=== PATIENT | female | born 1945 | race Two or more races ===

== ENCOUNTER → 2016-05-10 | Outpatient (CLI) | payer MEDICARE, MEDICAID ==
[~2016-05-10] MED LIST: AMLO5TAB2 PO; ASPI-231 PO; ESOM40CA39 PO; METO25TA5 PO; ROSU20TA14 PO
[2016-05-10 12:07] LABS: Urine Bilirubin Negative (Negative); Urine Blood Negative /uL (Negative); Urine Color Yellow (Yellow); Urine Glucose Normal (Normal); Urine Ketone Negative (Negative); Urine Nitrite Negative (Negative); Urine Urobilinogen Normal (Negative); Urine pH 5.5 (5.0-8.0)
[2016-05-10 12:11] LABS: Basophils # (auto) 0 uL; Basophils % (auto) 0.2 % (0.0-2.0); Eosinophils # (auto) 0.2 uL; Eosinophils % (auto) 3.2 % (0.0-7.0); Hematocrit 39.5 % (36.0-46.0); Hemoglobin 13.4 g/dL (12.2-16.2); Lymphocytes # (auto) 1.7 uL; Lymphocytes % (auto) 30.7 % (10.0-50.0); Mean Corpuscular Hemoglobin 31.9 pg (28.0-32.0); Mean Corpuscular Volume 93.8 fL (80.0-100.0); Mean Platelet Volume 8.4 fL (7.4-10.4); Monocytes # (auto) 0.4 uL; Monocytes % (auto) 6.6 % (0.0-12.0); Neutrophils # (auto) 3.2 uL; Neutrophils % (auto) 59.3 % (37.0-80.0); Platelet Count (auto) 229 10^3/uL (140-450); Red Cell Distribution Width 13.3 % (11.6-16.0); White Blood Cell 5.5 10^3/uL (4.4-10.8)
[2016-05-10 12:34] LABS: Alkaline Phosphatase 89 U/L (45-117); Anion Gap 11 (5-15); Aspartate Aminotransferase 22 U/L (15-37); BUN/Creatinine Ratio 19.6; Bilirubin, Direct 0.2 mg/dL (0-0.2); Bilirubin, Total 0.5 mg/dL (0.2-1.0); Blood Urea Nitrogen 29 mg/dL (7-18); Calcium 9.1 mg/dL (8.5-10.1); Carbon Dioxide 26 mmol/L (21-32); Chloride 110 mmol/L (98-107); Cholesterol 265 mg/dL (0-200); GFR African American 44 mL/min; GFR Non-African American 37 mL/min; Glucose 90 mg/dL (74-106); HDL Cholesterol 42 mg/dL (40-59); Potassium 4.6 mmol/L (3.5-5.1); Sodium 147 mmol/L (136-145); Triglycerides 438 mg/dL (<150)
== END | disposition home or self-care (01) ==
LOC: LAB 09:00
PROVIDERS: ATTEND Internal Medicine Cardiovascular Disease
DX: I10 Essential (primary) hypertension (principal); E78.00 Pure hypercholesterolemia, unspecified; K74.1 Hepatic sclerosis; E11.9 Type 2 diabetes mellitus without complications; E03.9 Hypothyroidism, unspecified; D64.9 Anemia, unspecified; E55.9 Vitamin D deficiency, unspecified; N39.0 Urinary tract infection, site not specified
CPT/HCPCS: 36415; 80048; 80061; 80076; 81003; 82306; 83036; 84439; 84443; 85025

== ENCOUNTER → 2016-08-07 | Outpatient (CLI) | payer MEDICARE, MEDICAID ==
[2016-08-07 12:27] LABS: Basophils # (auto) 0 uL; Basophils % (auto) 0.4 % (0.0-2.0); CONDITION Y; Eosinophils # (auto) 0.1 uL; Hematocrit 37.9 % (36.0-46.0); Hemoglobin 13.3 g/dL (12.2-16.2); Lymphocytes # (auto) 1.6 uL; Lymphocytes % (auto) 32.2 % (10.0-50.0); Mean Corpuscular Hemoglobin 32.9 pg (28.0-32.0); Mean Corpuscular Hgb Conc. 35.1 g/dL (32.0-36.0); Mean Corpuscular Volume 93.8 fL (80.0-100.0); Mean Platelet Volume 8.7 fL (7.4-10.4); Monocytes # (auto) 0.3 uL; Neutrophils # (auto) 2.9 uL; Neutrophils % (auto) 58.4 % (37.0-80.0); Platelet Count (auto) 207 10^3/uL (140-450); Red Cell Distribution Width 12.9 % (11.6-16.0)
[2016-08-07 13:13] LABS: Albumin 3.8 g/dL (3.4-5.0); BUN/Creatinine Ratio 19.5; Bilirubin, Total 0.4 mg/dL (0.2-1.0); Calcium 8.7 mg/dL (8.5-10.1); Potassium 4.4 mmol/L (3.5-5.1); Total Protein 7.4 g/dL (6.4-8.2)
== END | disposition home or self-care (01) ==
LOC: LAB 09:19
PROVIDERS: ATTEND Internal Medicine Cardiovascular Disease
DX: I10 Essential (primary) hypertension (principal); E03.9 Hypothyroidism, unspecified; D64.9 Anemia, unspecified
CPT/HCPCS: 36415; 80053; 84443; 85025

== ENCOUNTER → 2017-03-19 | Outpatient (CLI) | payer MEDICARE, MEDICAID ==
[2017-03-19 12:09] LABS: Basophils # (auto) 0.1 uL; Basophils % (auto) 1.6 % (0.0-2.0); Eosinophils # (auto) 0.2 uL; Eosinophils % (auto) 3.3 % (0.0-7.0); Hemoglobin 12.9 g/dL (12.2-16.2); Lymphocytes # (auto) 1.8 uL; Lymphocytes % (auto) 31.9 % (10.0-50.0); Mean Corpuscular Hemoglobin 31.5 pg (28.0-32.0); Mean Corpuscular Volume 95.4 fL (80.0-100.0); Monocytes # (auto) 0.3 uL; Monocytes % (auto) 5.9 % (0.0-12.0); Neutrophils # (auto) 3.2 uL; Neutrophils % (auto) 57.3 % (37.0-80.0); Nucleated Red Blood Cells % 0.9 %; Platelet Count (auto) 218 10^3/uL (140-450); Red Blood Cells 4.09 10^6/uL (4.0-5.20); Red Cell Distribution Width 13.2 % (11.8-14.3); White Blood Cell 5.5 10^3/uL (4.4-10.8)
[2017-03-19 12:13] LABS: Urine Blood Negative /uL (Negative); Urine Specific Gravity 1.016 (1.001-1.035)
[2017-03-19 12:41] LABS: Alanine Aminotransferase 21 U/L (13-56); Albumin 3.7 g/dL (3.4-5.0); Alkaline Phosphatase 91 U/L (45-117); Anion Gap 9 (5-15); Aspartate Aminotransferase 17 U/L (15-37); BUN/Creatinine Ratio 17.1; Bilirubin, Direct 0.1 mg/dL (0-0.2); Bilirubin, Total 0.5 mg/dL (0.2-1.0); Blood Urea Nitrogen 26 mg/dL (7-18); Carbon Dioxide 24 mmol/L (21-32); Chloride 108 mmol/L (98-107); Cholesterol 247 mg/dL (< 200); GFR African American 43 mL/min; GFR Non-African American 36 mL/min; Glucose 85 mg/dL (74-106); HDL Cholesterol 44 mg/dL (40-59); Potassium 4.3 mmol/L (3.5-5.1); Sodium 141 mmol/L (136-145); Total Protein 7.8 g/dL (6.4-8.2); Triglycerides 408 mg/dL (< 150)
== END | disposition home or self-care (01) ==
LOC: LAB 08:09
PROVIDERS: ATTEND Internal Medicine
DX: E78.00 Pure hypercholesterolemia, unspecified (principal); D64.9 Anemia, unspecified; E11.9 Type 2 diabetes mellitus without complications; E55.9 Vitamin D deficiency, unspecified; K74.1 Hepatic sclerosis; I10 Essential (primary) hypertension; N39.0 Urinary tract infection, site not specified; E03.9 Hypothyroidism, unspecified
CPT/HCPCS: 36415; 80048; 80061; 80076; 81003; 82306; 83036; 84443; 85025

== ENCOUNTER → 2017-04-16 | Outpatient (CLI) | payer MEDICARE, MEDICAID | END | disposition home or self-care (01) | LOC: Rad HDHVI 08:36 | PROVIDERS: ATTEND Internal Medicine Cardiovascular Disease | DX: I70.0 Atherosclerosis of aorta (principal); I51.7 Cardiomegaly | CPT/HCPCS: 93306 ==

== ENCOUNTER → 2017-04-25 | Outpatient (CLI) | payer MEDICARE, MEDICAID ==
[~2017-04-25] VITALS: Ht 162.6 cm; Wt 75.3 kg
== END | disposition home or self-care (01) ==
LOC: Rad HDHVI 12:57
PROVIDERS: ATTEND Internal Medicine Cardiovascular Disease
DX: I12.9 Hypertensive chronic kidney disease with stage 1 through stage 4 chronic kidney disease, or unspecified chronic kidney disease (principal); N18.3 Chronic kidney disease, stage 3 (moderate); E78.2 Mixed hyperlipidemia; E78.1 Pure hyperglyceridemia; K21.9 Gastro-esophageal reflux disease without esophagitis; R07.89 Other chest pain
CPT/HCPCS: 78452; 93017; 96374; A9500

== ENCOUNTER 2017-11-28 13:57 | Emergency (ER) | payer MEDICARE, MEDICAID ==
[~2017-11-28] VITALS: Ht 162.6 cm; Wt 78.0 kg
[~2017-11-28 13:57] MED LIST changes: +AMLO5TAB13 PO; -AMLO5TAB2 PO
[2017-11-28] MEDS ORDERED: cloNIDine HCL 0.1 MG TAB PO ONE (14:15)
[2017-11-28] MEDS ORDERED: HYDROcodone-ACET 5/325MG TAB PO ONE (14:15)
[2017-11-28 14:54] VITALS: BP 164/72
[2017-11-28 15:15] LABS: Basophils # (auto) 0 uL; Basophils % (auto) 0.5 % (0.0-2.0); Eosinophils # (auto) 0.2 uL; Eosinophils % (auto) 2.5 % (0.0-7.0); Hematocrit 36.8 % (36.0-46.0); Hemoglobin 12.7 g/dL (12.2-16.2); Lymphocytes # (auto) 2.4 uL; Lymphocytes % (auto) 34.4 % (10.0-50.0); Mean Corpuscular Hemoglobin 32.5 pg (28.0-32.0); Mean Corpuscular Hgb Conc. 34.6 g/dL (32.0-36.0); Mean Corpuscular Volume 93.8 fL (80.0-100.0); Monocytes # (auto) 0.5 uL; Monocytes % (auto) 7.3 % (0.0-12.0); Neutrophils # (auto) 3.9 uL; Neutrophils % (auto) 55.3 % (37.0-80.0); Nucleated Red Blood Cells % 0.1 %; Platelet Count (auto) 218 10^3/uL (140-450); Red Blood Cells 3.93 10^6/uL (4.0-5.20); Red Cell Distribution Width 12.9 % (11.8-14.3)
[2017-11-28 15:30] LABS: Alanine Aminotransferase 23 U/L (13-56); Albumin 3.7 g/dL (3.4-5.0); Anion Gap 7 (5-15); Blood Urea Nitrogen 21 mg/dL (7-18); Calcium 8.7 mg/dL (8.5-10.1); Carbon Dioxide 24 mmol/L (21-32); Chloride 109 mmol/L (98-107); Glucose 88 mg/dL (74-106); Potassium 3.6 mmol/L (3.5-5.1); Sodium 140 mmol/L (136-145)
[2017-11-28 15:35] LABS: Alkaline Phosphatase 85 U/L (45-117); Aspartate Aminotransferase 20 U/L (15-37); BUN/Creatinine Ratio 14.2; Bilirubin, Total 0.4 mg/dL (0.2-1.0); GFR African American 44 mL/min; GFR Non-African American 37 mL/min; Total Protein 7.8 g/dL (6.4-8.2)
== END 2017-11-28 16:32 | disposition home or self-care (01) ==
LOC: ER 13:57
DX: I10 Essential (primary) hypertension (principal); Z88.5 Allergy status to narcotic agent; Z88.0 Allergy status to penicillin; Z88.2 Allergy status to sulfonamides; Z79.82 Long term (current) use of aspirin; Z79.899 Other long term (current) drug therapy
CPT/HCPCS: 36415; 70450; 80053; 84484; 85025

== ENCOUNTER → 2018-05-08 | Outpatient (CLI) | payer MEDICARE, MEDICAID ==
[2018-05-08 12:24] LABS: Basophils # (auto) 0 uL; Basophils % (auto) 0.5 % (0.0-2.0); Eosinophils # (auto) 0.2 uL; Eosinophils % (auto) 4.2 % (0.0-7.0); Hematocrit 36.6 % (36.0-46.0); Hemoglobin 12.4 g/dL (12.2-16.2); Lymphocytes # (auto) 1.9 uL; Lymphocytes % (auto) 34.2 % (10.0-50.0); Mean Corpuscular Hemoglobin 32.1 pg (28.0-32.0); Mean Corpuscular Hgb Conc. 33.7 g/dL (32.0-36.0); Mean Corpuscular Volume 95.2 fL (80.0-100.0); Monocytes # (auto) 0.5 uL; Monocytes % (auto) 8.3 % (0.0-12.0); Neutrophils # (auto) 2.9 uL; Neutrophils % (auto) 52.8 % (37.0-80.0); Nucleated Red Blood Cells % 0.2 %; Platelet Count (auto) 202 10^3/uL (140-450); Red Blood Cells 3.85 10^6/uL (4.0-5.20); Red Cell Distribution Width 13.4 % (11.8-14.3); White Blood Cell 5.5 10^3/uL (4.4-10.8)
[2018-05-08 12:25] LABS: Chloride 110 mmol/L (98-107); Potassium 3.9 mmol/L (3.5-5.1); Sodium 142 mmol/L (136-145)
[2018-05-08 12:32] LABS: Urine Blood Negative /uL (Negative); Urine Specific Gravity 1.018 (1.001-1.035)
[2018-05-08 12:33] LABS: Free T4 (Free Thyroxine) 0.95 ng/dL (0.89-1.76)
[2018-05-08 12:34] LABS: Anion Gap 8 (5-15); BUN/Creatinine Ratio 17.9; Blood Urea Nitrogen 24 mg/dL (7-18); Carbon Dioxide 24 mmol/L (21-32); GFR African American 50 mL/min; Glucose 86 mg/dL (74-106)
[2018-05-08 12:35] LABS: Alanine Aminotransferase 20 U/L (13-56); Albumin 3.7 g/dL (3.4-5.0); Alkaline Phosphatase 82 U/L (45-117); Aspartate Aminotransferase 20 U/L (15-37); Bilirubin, Total 0.4 mg/dL (0.2-1.0); Cholesterol 310 mg/dL (< 200); GFR Non-African American 41 mL/min; HDL Cholesterol 45 mg/dL (40-59); Total Protein 7.3 g/dL (6.4-8.2); Triglycerides 522 mg/dL (< 150)
== END | disposition home or self-care (01) ==
LOC: LAB 08:31
PROVIDERS: ATTEND Internal Medicine
DX: E55.9 Vitamin D deficiency, unspecified (principal); E03.9 Hypothyroidism, unspecified; E11.9 Type 2 diabetes mellitus without complications; D51.9 Vitamin B12 deficiency anemia, unspecified; N39.0 Urinary tract infection, site not specified
CPT/HCPCS: 36415; 80053; 80061; 81003; 82306; 82607; 83036; 84439; 84443; 85025; 87086

== ENCOUNTER → 2019-01-06 | Outpatient (CLI) | payer MEDICARE, MEDICAID ==
[~2019-01-06] MED LIST changes: -AMLO5TAB13 PO; +AMLO5TAB15 PO
[2019-01-06 15:44] LABS: Urine Blood Negative /uL (Negative); Urine Specific Gravity 1.017 (1.001-1.035)
[2019-01-06 15:45] LABS: Basophils # (auto) 0 uL; Basophils % (auto) 0.7 % (0.0-2.0); Eosinophils # (auto) 0.2 uL; Eosinophils % (auto) 2.7 % (0.0-7.0); Hematocrit 39.2 % (36.0-46.0); Hemoglobin 13.5 g/dL (12.2-16.2); Lymphocytes % (auto) 31.5 % (10.0-50.0); Mean Corpuscular Hemoglobin 32.6 pg (28.0-32.0); Mean Corpuscular Hgb Conc. 34.5 g/dL (32.0-36.0); Mean Corpuscular Volume 94.4 fL (80.0-100.0); Monocytes # (auto) 0.5 uL; Monocytes % (auto) 7.5 % (0.0-12.0); Neutrophils # (auto) 3.6 uL; Neutrophils % (auto) 57.6 % (37.0-80.0); Nucleated Red Blood Cells % 0.1 %; Platelet Count (auto) 227 10^3/uL (140-450); Red Blood Cells 4.15 10^6/uL (4.0-5.20); Red Cell Distribution Width 13.7 % (11.8-14.3); White Blood Cell 6.3 10^3/uL (4.4-10.8)
[2019-01-06 15:52] LABS: Albumin 3.9 g/dL (3.4-5.0); Anion Gap 5 (5-15); Blood Urea Nitrogen 33 mg/dL (7-18); Calcium 9.1 mg/dL (8.5-10.1); Carbon Dioxide 23 mmol/L (21-32); Chloride 113 mmol/L (98-107); Glucose 93 mg/dL (74-106); Sodium 141 mmol/L (136-145)
[2019-01-06 15:56] LABS: Alanine Aminotransferase 26 U/L (13-56); Alkaline Phosphatase 93 U/L (45-117); Aspartate Aminotransferase 17 U/L (15-37); BUN/Creatinine Ratio 18.1; Bilirubin, Total 0.3 mg/dL (0.2-1.0); Cholesterol 284 mg/dL (< 200); GFR African American 35 mL/min; GFR Non-African American 29 mL/min; HDL Cholesterol 36 mg/dL (40-59); Total Protein 7.9 g/dL (6.4-8.2); Triglycerides 784 mg/dL (< 150)
[2019-01-06 16:00] LABS: Free T4 (Free Thyroxine) 0.73 ng/dL (0.89-1.76)
== END | disposition home or self-care (01) ==
LOC: Rad HDHVI 10:44
PROVIDERS: ATTEND Internal Medicine
DX: D35.02 Benign neoplasm of left adrenal gland (principal); M48.061 Spinal stenosis, lumbar region without neurogenic claudication; M85.9 Disorder of bone density and structure, unspecified; Q61.01 Congenital single renal cyst; E03.9 Hypothyroidism, unspecified; K90.9 Intestinal malabsorption, unspecified; N39.0 Urinary tract infection, site not specified; D51.9 Vitamin B12 deficiency anemia, unspecified; M48.04 Spinal stenosis, thoracic region; M47.894 Other spondylosis, thoracic region; M12.88 Other specific arthropathies, not elsewhere classified, other specified site; Z79.899 Other long term (current) drug therapy
CPT/HCPCS: 36415; 72128; 72131; 77078; 80053; 80061; 81003; 82306; 82607; 83036; 84439; 84443; 85025

== ENCOUNTER → 2019-07-08 | Outpatient (CLI) | payer MEDICARE, MEDICAID ==
[2019-07-08 11:51] LABS: Basophils # (auto) 0 10 ^3/uL (0-0.2); Basophils % (auto) 0.6 % (0.0-2.0); Eosinophils # (auto) 0.1 10 ^3/uL (0-0.8); Eosinophils % (auto) 2.3 % (0.0-7.0); Hematocrit 39.7 % (36.0-46.0); Hemoglobin 13.6 g/dL (12.2-16.2); Lymphocytes # (auto) 1.9 10 ^3/uL (0.4-5.4); Lymphocytes % (auto) 35.9 % (10.0-50.0); Mean Corpuscular Hemoglobin 31.8 pg (28.0-32.0); Mean Corpuscular Hgb Conc. 34.2 g/dL (32.0-36.0); Mean Corpuscular Volume 92.8 fL (80.0-100.0); Monocytes # (auto) 0.5 10 ^3/uL (0-1.3); Monocytes % (auto) 9.2 % (0.0-12.0); Neutrophils # (auto) 2.7 10 ^3/uL (1.6-8.6); Nucleated Red Blood Cells % 0.1 %; Platelet Count (auto) 222 10^3/uL (140-450); Red Blood Cells 4.27 10^6/uL (4.0-5.20); Red Cell Distribution Width 12.8 % (11.8-14.3); White Blood Cell 5.3 10^3/uL (4.4-10.8)
[2019-07-08 11:52] LABS: Urine Blood Negative /uL (Negative); Urine Specific Gravity 1.009 (1.001-1.035)
[2019-07-08 12:07] LABS: Anion Gap 10 (5-15); Calcium 9.6 mg/dL (8.5-10.1); Carbon Dioxide 23 mmol/L (21-32); Chloride 90 mmol/L (98-107); Glucose 103 mg/dL (74-106); Potassium 4.4 mmol/L (3.5-5.1); Sodium 123 mmol/L (136-145)
[2019-07-08 12:10] LABS: Free T4 (Free Thyroxine) 1.2 ng/dL (0.89-1.76)
[2019-07-08 12:13] LABS: Alanine Aminotransferase 32 U/L (13-56); Alkaline Phosphatase 91 U/L (45-117); Aspartate Aminotransferase 31 U/L (15-37); Bilirubin, Total 0.7 mg/dL (0.2-1.0); Blood Urea Nitrogen 22 mg/dL (7-18); Cholesterol 299 mg/dL (< 200); GFR African American 41 mL/min; GFR Non-African American 34 mL/min; HDL Cholesterol 40 mg/dL (40-59); Triglycerides 522 mg/dL (< 150)
== END | disposition home or self-care (01) ==
LOC: LAB 08:17
PROVIDERS: ATTEND Internal Medicine
DX: E03.9 Hypothyroidism, unspecified (principal); K90.9 Intestinal malabsorption, unspecified; N39.0 Urinary tract infection, site not specified; D51.9 Vitamin B12 deficiency anemia, unspecified; Z00.00 Encounter for general adult medical examination without abnormal findings; Z79.899 Other long term (current) drug therapy
CPT/HCPCS: 36415; 80053; 80061; 81003; 82306; 82607; 83036; 84439; 84443; 85025; 87086

== ENCOUNTER → 2019-10-13 | Outpatient (CLI) | payer MEDICARE, MEDICAID ==
[2019-10-13 12:20] LABS: Albumin 3.7 g/dL (3.4-5.0); Anion Gap 6 (5-15); Carbon Dioxide 24 mmol/L (21-32); Chloride 109 mmol/L (98-107); Potassium 4.3 mmol/L (3.5-5.1); Sodium 139 mmol/L (136-145)
[2019-10-13 12:27] LABS: Alanine Aminotransferase 24 U/L (13-56); Alkaline Phosphatase 120 U/L (45-117); Aspartate Aminotransferase 19 U/L (15-37); BUN/Creatinine Ratio 28.7; Bilirubin, Total 0.4 mg/dL (0.2-1.0); Blood Urea Nitrogen 48 mg/dL (7-18); Calcium 8.9 mg/dL (8.5-10.1); Cholesterol 185 mg/dL (< 200); GFR African American 38 mL/min; GFR Non-African American 32 mL/min; Glucose 91 mg/dL (74-106); HDL Cholesterol 37 mg/dL (40-59); Total Protein 7.4 g/dL (6.4-8.2); Triglycerides 455 mg/dL (< 150)
== END | disposition home or self-care (01) ==
LOC: LAB 09:17
PROVIDERS: ATTEND Internal Medicine
DX: E78.1 Pure hyperglyceridemia (principal); I10 Essential (primary) hypertension; E78.5 Hyperlipidemia, unspecified
CPT/HCPCS: 36415; 80053; 80061; 84443

== ENCOUNTER → 2020-03-10 | Outpatient (CLI) | payer MEDICARE, MEDICAID ==
[~2020-03-10] MED LIST changes: +AMLO-489 PO; -AMLO5TAB15 PO
== END | disposition home or self-care (01) ==
LOC: Rad HDHVI 08:58
PROVIDERS: ATTEND Internal Medicine Cardiovascular Disease
DX: I07.1 Rheumatic tricuspid insufficiency (principal); I11.0 Hypertensive heart disease with heart failure; I50.30 Unspecified diastolic (congestive) heart failure; E78.5 Hyperlipidemia, unspecified
CPT/HCPCS: 93306

== ENCOUNTER → 2020-03-22 | Outpatient (CLI) | payer MEDICARE, MEDICAID ==
[~2020-03-22] VITALS: Ht 162.6 cm; Wt 78.0 kg
[~2020-03-22] MED LIST changes: +ADENOSINE 66 MG in GIVE UN-DILUTED 0 ML IV ONE; +ADENOSINE 90 MG/30 ML INJ IV ONE
== END | disposition home or self-care (01) ==
LOC: Rad HDHVI 12:51
PROVIDERS: ATTEND Internal Medicine
DX: I10 Essential (primary) hypertension (principal); E78.00 Pure hypercholesterolemia, unspecified; R06.02 Shortness of breath
CPT/HCPCS: 78452; 93005; 96374; 96375; A9500; J0153

== ENCOUNTER → 2020-04-04 | Outpatient (CLI) | payer MEDICARE, MEDICAID ==
[~2020-04-04] MED LIST changes: -ADENOSINE 66 MG in GIVE UN-DILUTED 0 ML IV ONE; -ADENOSINE 90 MG/30 ML INJ IV ONE
[2020-04-04 11:43] LABS: Basophils # (auto) 0 10 ^3/uL (0-0.2); Basophils % (auto) 0.7 % (0.0-2.0); Eosinophils # (auto) 0.3 10 ^3/uL (0-0.8); Eosinophils % (auto) 5.9 % (0.0-7.0); Hematocrit 37.3 % (36.0-46.0); Hemoglobin 12.9 g/dL (12.2-16.2); Lymphocytes # (auto) 2.2 10 ^3/uL (0.4-5.4); Lymphocytes % (auto) 41.9 % (10.0-50.0); Mean Corpuscular Hemoglobin 32.6 pg (28.0-32.0); Mean Corpuscular Hgb Conc. 34.5 g/dL (32.0-36.0); Mean Corpuscular Volume 94.6 fL (80.0-100.0); Monocytes # (auto) 0.4 10 ^3/uL (0-1.3); Monocytes % (auto) 8.4 % (0.0-12.0); Neutrophils # (auto) 2.2 10 ^3/uL (1.6-8.6); Neutrophils % (auto) 43.1 % (37.0-80.0); Nucleated Red Blood Cells % 0.2 %; Platelet Count (auto) 230 10^3/uL (140-450); Red Blood Cells 3.94 10^6/uL (4.0-5.20); Red Cell Distribution Width 12.7 % (11.8-14.3); White Blood Cell 5.2 10^3/uL (4.4-10.8)
[2020-04-04 11:44] LABS: Urine Blood Negative /uL (Negative); Urine Specific Gravity 1.016 (1.001-1.035)
[2020-04-04 11:46] LABS: Chloride 109 mmol/L (98-107); Potassium 4.3 mmol/L (3.5-5.1); Sodium 140 mmol/L (136-145)
[2020-04-04 12:00] LABS: Free T4 (Free Thyroxine) 1.04 ng/dL (0.89-1.76)
[2020-04-04 12:15] LABS: Alanine Aminotransferase 19 U/L (13-56); Albumin 3.7 g/dL (3.4-5.0); Alkaline Phosphatase 110 U/L (45-117); Anion Gap 7 (5-15); Aspartate Aminotransferase 17 U/L (15-37); BUN/Creatinine Ratio 20.7; Bilirubin, Total 0.3 mg/dL (0.2-1.0); Blood Urea Nitrogen 34 mg/dL (7-18); Calcium 9.4 mg/dL (8.5-10.1); Carbon Dioxide 24 mmol/L (21-32); Cholesterol 283 mg/dL (< 200); GFR African American 39 mL/min; GFR Non-African American 32 mL/min; Glucose 103 mg/dL (74-106); HDL Cholesterol 33 mg/dL (40-59); Total Protein 7.8 g/dL (6.4-8.2); Triglycerides 1193 mg/dL (< 150)
== END | disposition home or self-care (01) ==
LOC: LAB 09:53
PROVIDERS: ATTEND Internal Medicine
DX: D51.3 Other dietary vitamin B12 deficiency anemia (principal); I10 Essential (primary) hypertension; E11.9 Type 2 diabetes mellitus without complications; E55.9 Vitamin D deficiency, unspecified; D64.9 Anemia, unspecified; R00.2 Palpitations; R53.1 Weakness; R30.0 Dysuria
CPT/HCPCS: 36415; 80053; 80061; 81003; 82306; 82607; 83036; 84439; 84443; 85025; 87086

== ENCOUNTER → 2020-05-09 | Outpatient (CLI) | payer MEDICARE, MEDICAID ==
[2020-05-09 12:43] LABS: Albumin 3.5 g/dL (3.4-5.0); Calcium 8.9 mg/dL (8.5-10.1); Potassium 4.9 mmol/L (3.5-5.1)
[2020-05-09 12:47] LABS: BUN/Creatinine Ratio 16.6; Bilirubin, Total 0.3 mg/dL (0.2-1.0); Total Protein 7.1 g/dL (6.4-8.2)
== END | disposition home or self-care (01) ==
LOC: LAB 10:15
PROVIDERS: ATTEND Internal Medicine
DX: I10 Essential (primary) hypertension (principal)
CPT/HCPCS: 36415; 80053

== ENCOUNTER → 2020-08-23 | Outpatient (CLI) | payer MEDICARE, MEDICAID ==
[2020-08-23 15:38] LABS: Basophils # (auto) 0.1 10 ^3/uL (0-0.2); Basophils % (auto) 1.1 % (0.0-2.0); Eosinophils # (auto) 0.3 10 ^3/uL (0-0.8); Hematocrit 38.1 % (36.0-46.0); Lymphocytes # (auto) 1.9 10 ^3/uL (0.4-5.4); Lymphocytes % (auto) 35.8 % (10.0-50.0); Mean Corpuscular Hemoglobin 32.5 pg (28.0-32.0); Mean Corpuscular Volume 95.7 fL (80.0-100.0); Monocytes # (auto) 0.5 10 ^3/uL (0-1.3); Monocytes % (auto) 9.4 % (0.0-12.0); Neutrophils # (auto) 2.6 10 ^3/uL (1.6-8.6); Neutrophils % (auto) 48.7 % (37.0-80.0); Nucleated Red Blood Cells % 0.3 %; Red Blood Cells 3.99 10^6/uL (4.0-5.20); Red Cell Distribution Width 13.2 % (11.8-14.3); White Blood Cell 5.3 10^3/uL (4.4-10.8)
[2020-08-23 15:49] LABS: Potassium 4.5 mmol/L (3.5-5.1)
[2020-08-23 15:53] LABS: Albumin 3.7 g/dL (3.4-5.0); BUN/Creatinine Ratio 15.3; Bilirubin, Total 0.4 mg/dL (0.2-1.0); Calcium 8.8 mg/dL (8.5-10.1); Total Protein 7.8 g/dL (6.4-8.2)
== END | disposition home or self-care (01) ==
LOC: Rad HDHVI 12:05
PROVIDERS: ATTEND Internal Medicine
DX: I10 Essential (primary) hypertension (principal); I70.0 Atherosclerosis of aorta; R05 Cough; D64.9 Anemia, unspecified
CPT/HCPCS: 36415; 71046; 80053; 85025

== ENCOUNTER → 2020-09-01 | Outpatient (CLI) | payer MEDICARE, MEDICAID ==
[2020-09-01 11:58] LABS: Cholesterol 304 mg/dL (< 200)
[2020-09-01 12:01] LABS: HDL Cholesterol 36 mg/dL (40-59); Triglycerides 842 mg/dL (< 150)
[2020-09-01 12:04] LABS: T3 Total 0.95 ng/mL (0.60-1.81)
[2020-09-01 12:10] LABS: Free T4 (Free Thyroxine) 0.96 ng/dL (0.89-1.76)
== END | disposition home or self-care (01) ==
LOC: LAB 08:07
PROVIDERS: ATTEND Internal Medicine
DX: E11.9 Type 2 diabetes mellitus without complications (principal); E03.9 Hypothyroidism, unspecified
CPT/HCPCS: 36415; 80061; 84439; 84443; 84480

== ENCOUNTER → 2021-06-22 | Outpatient (CLI) | payer MEDICARE, MEDICAID ==
[~2021-06-22] MED LIST changes: -ASPI-231 PO; +ASPI1TAB20 PO
[2021-06-22 10:24] LABS: Urine Blood Negative /uL (Negative); Urine Specific Gravity 1.016 (1.001-1.035)
[2021-06-22 10:29] LABS: Albumin 3.5 g/dL (3.4-5.0); Potassium 4.4 mmol/L (3.5-5.1); Uric Acid 2.9 mg/dL (2.6-6.0)
[2021-06-22 10:32] LABS: Basophils # (auto) 0 10 ^3/uL (0-0.2); Basophils % (auto) 0.5 % (0.0-2.0); Eosinophils # (auto) 0.2 10 ^3/uL (0-0.8); Eosinophils % (auto) 4.5 % (0.0-7.0); Hematocrit 34.4 % (36.0-46.0); Hemoglobin 12.1 g/dL (12.2-16.2); Lymphocytes # (auto) 1.6 10 ^3/uL (0.4-5.4); Lymphocytes % (auto) 30.3 % (10.0-50.0); Mean Corpuscular Hemoglobin 33.6 pg (28.0-32.0); Mean Corpuscular Hgb Conc. 35.3 g/dL (32.0-36.0); Mean Corpuscular Volume 95.4 fL (80.0-100.0); Monocytes # (auto) 0.4 10 ^3/uL (0-1.3); Monocytes % (auto) 8.2 % (0.0-12.0); Neutrophils # (auto) 2.9 10 ^3/uL (1.6-8.6); Neutrophils % (auto) 56.5 % (37.0-80.0); Nucleated Red Blood Cells % 0.1 %; White Blood Cell 5.2 10^3/uL (4.4-10.8)
[2021-06-22 10:33] LABS: BUN/Creatinine Ratio 22.8; Bilirubin, Total 0.3 mg/dL (0.2-1.0)
[2021-06-22 14:42] LABS: Free T4 (Free Thyroxine) 1.44 ng/dL (0.89-1.76)
== END | disposition home or self-care (01) ==
LOC: LAB 08:57
PROVIDERS: ATTEND Internal Medicine
DX: I10 Essential (primary) hypertension (principal); E11.9 Type 2 diabetes mellitus without complications; E55.9 Vitamin D deficiency, unspecified; D51.3 Other dietary vitamin B12 deficiency anemia; D64.9 Anemia, unspecified; R00.2 Palpitations; R53.1 Weakness; R30.0 Dysuria
CPT/HCPCS: 36415; 80053; 80061; 81003; 82306; 82607; 83036; 84439; 84443; 84550; 85025; 87086

== ENCOUNTER → 2021-12-19 | Outpatient (CLI) | payer MEDICARE, MEDICAID | END | disposition home or self-care (01) | LOC: Rad HDHVI 11:36 | PROVIDERS: ATTEND Internal Medicine | DX: M17.11 Unilateral primary osteoarthritis, right knee (principal); M47.816 Spondylosis without myelopathy or radiculopathy, lumbar region; M48.061 Spinal stenosis, lumbar region without neurogenic claudication; M51.36 Other intervertebral disc degeneration, lumbar region; M25.70 Osteophyte, unspecified joint; M54.50 Low back pain, unspecified | CPT/HCPCS: 72100; 73562 ==

== ENCOUNTER → 2022-08-08 | Outpatient (CLI) | payer MEDICARE, MEDICAID ==
[~2022-08-08] MED LIST changes: -AMLO-489 PO; +AMLO1TAB22 PO
== END | disposition home or self-care (01) ==
LOC: Rad HDHVI 10:51
PROVIDERS: ATTEND Internal Medicine Cardiovascular Disease
DX: I08.3 Combined rheumatic disorders of mitral, aortic and tricuspid valves (principal); I10 Essential (primary) hypertension; R07.89 Other chest pain
CPT/HCPCS: 93306

== ENCOUNTER → 2022-08-13 | Outpatient (CLI) | payer MEDICARE, MEDICAID ==
[~2022-08-13] VITALS: Ht 162.6 cm; Wt 71.2 kg
[~2022-08-13] MED LIST changes: +ADENOSINE 60 MG in GIVE UN-DILUTED 0 ML IV ONE; +ADENOSINE 90 MG/30 ML INJ IV ONE
== END | disposition home or self-care (01) ==
LOC: Rad HDHVI 08:19
PROVIDERS: ATTEND Internal Medicine Cardiovascular Disease
DX: R07.89 Other chest pain (principal); I73.9 Peripheral vascular disease, unspecified; R42 Dizziness and giddiness; I10 Essential (primary) hypertension; E78.00 Pure hypercholesterolemia, unspecified
CPT/HCPCS: 78452; 93005; 96374; 96375; A9500; J0153

== ENCOUNTER → 2022-09-05 | Outpatient (CLI) | payer MEDICARE, MEDICAID ==
[~2022-09-05] MED LIST changes: -ADENOSINE 60 MG in GIVE UN-DILUTED 0 ML IV ONE; -ADENOSINE 90 MG/30 ML INJ IV ONE
== END | disposition home or self-care (01) ==
LOC: Rad HDHVI 08:07
PROVIDERS: ATTEND Internal Medicine Cardiovascular Disease
DX: I10 Essential (primary) hypertension (principal)
CPT/HCPCS: 93925

== ENCOUNTER → 2023-11-06 | Outpatient (CLI) | payer MEDICARE, MEDICAID | END | disposition home or self-care (01) | LOC: Rad HDHVI 13:45 | PROVIDERS: ATTEND Internal Medicine Cardiovascular Disease | DX: I10 Essential (primary) hypertension (principal); E78.5 Hyperlipidemia, unspecified | CPT/HCPCS: 93306 ==

== ENCOUNTER → 2023-11-13 | Outpatient (CLI) | payer MEDICARE, MEDICAID ==
[~2023-11-13] VITALS: Ht 162.6 cm; Wt 69.9 kg
[~2023-11-13] MED LIST changes: +ADENOSINE 59 MG in GIVE UN-DILUTED 0 ML IV ONE; +ADENOSINE 90 MG/30 ML INJ IV ONE
== END | disposition home or self-care (01) ==
LOC: Rad HDHVI 09:18
PROVIDERS: ATTEND Internal Medicine Cardiovascular Disease
DX: I13.0 Hypertensive heart and chronic kidney disease with heart failure and stage 1 through stage 4 chronic kidney disease, or unspecified chronic kidney disease (principal); I50.33 Acute on chronic diastolic (congestive) heart failure; N18.32 Chronic kidney disease, stage 3b; R00.2 Palpitations; E78.00 Pure hypercholesterolemia, unspecified; Z79.899 Other long term (current) drug therapy
CPT/HCPCS: 78452; 93005; 96374; 96375; A9500; J0153

== ENCOUNTER → 2024-01-14 | Outpatient (CLI) | payer MEDICARE, MEDICAID ==
[~2024-01-14] MED LIST changes: -ADENOSINE 59 MG in GIVE UN-DILUTED 0 ML IV ONE; -ADENOSINE 90 MG/30 ML INJ IV ONE; +IOHEXOL 350 MG/ML 100ML IJ ONE; +READI-CAT 2 (BARIUM SULF)(VANILLA SMOOTHIE) 450ML ONE
[2024-01-14 11:53] VITALS: BP 165/66; PULSE 55; RESP 18; O2SAT 97
--- NOTE | 2024-01-14 12:42 | DVH ---
Exam: CT CT AB PEL WO CON-NO ORAL OR IV History: R/O STONES Comparison Study: None available at time of dictation. Technique: Multidetector spiral CT of the abdomen and pelvis was performed from lung bases to pubic s ymphysis. Imaging was performed without intravenous contrast. Coronal and sagittal multiplanar refor mats were obtained from the axial data set by the technologist. Radiation Dose : 1. Abdomen/Pelvis: CTDIvol 7.9 mGy, DLP 347.7 mGy*cm. Findings: Evaluation of vasculature and solid organs is limited due to lack of intravenous contrast use. Lung Bases: Lung bases are clear. Visualized portions of the heart and pericardium are unremarkable. Liver: The liver is normal in size. No focal lesions. Gallbladder and Biliary Tree: The gallbladder contains multiple gallstones. No intrahepatic or extr ahepatic biliary ductal dilatation. Spleen: Unremarkable Pancreas: The pancreas is grossly unremarkable. Adrenal Glands: 2.2 cm low attenuating left adrenal nodule. The right adrenal is unremarkable. Kidneys: Kidneys are unremarkable without calculi or hydronephrosis. 9 mm left renal cyst. GI tract: The stomach is grossly normal in appearance. No evidence of small bowel wall thickening or abnormal dilatation to suggest bowel obstruction. Sigmoid diverticulosis without acute diverticuliti s. The appendix is visualized and is normal. Peritoneum/mesentery/retroperitoneum. No evidence of free intraperitoneal air. No ascites. No evidenc e of suspicious lymphadenopathy. Abdominal Wall: Unremarkable. Vasculature: The visualized abdominal aorta is normal in size and caliber. Evaluation of abdominal a nd pelvic vessels is limited due to lack of intravenous contrast. Urinary Bladder: Grossly unremarkable for degree of distention. Pelvic Organs: Uterus and adnexal structures are unremarkable. Musculoskeletal: No aggressive focal bony lesions, acute fractures or dislocation. Soft tissues: Bilateral calcified granulomas in the gluteal soft tissues. IMPRESSION: 1. No acute abdominal or pelvic findings. 2. Multiple gallstones. 3. Low attenuating left adrenal nodule measuring 2.2 cm, most likely representing an adenoma.
[2024-01-14 12:52] VITALS: BP 169/57; PULSE 60; RESP 18; O2SAT 97
--- NOTE | 2024-01-14 13:00 | DVH ---
EXAMINATION: XY RIBS BILATERAL INDICATION: RIGHT FLANK PAIN COMPARISON: None TECHNIQUE: Frontal view of the chest and < 3 >> views of the right ribs history FINDINGS: No focal consolidation, pleural effusion or significant pneumothorax. Normal cardiomediastinal silhou ette. No displaced right rib fracture. IMPRESSION: No acute cardiopulmonary disease. No displaced right rib fracture.
--- NOTE | 2024-01-14 13:41 | DVH ---
Procedure: CT CT ABD PELVIS W CON-ORAL IV 01/14/2024 12:41 PM Indication: R/O MASS Comparison Study: CT scan without IV contrast performed earlier today Technique: Axial images were obtained and reformatted in coronal and sagittal planes. All CT scans at this medical facility are performed using dose modulation techniques as appropriate t o a performed exam including the following: Automated exposure control was utilized; adjustment of th e MA and/or KV according to patient size; and use of iterative reconstruction technique. CT Dose: CTDI volume is 7.64 mGy. Dose-length product is 347.39 mGy*cm FINDINGS: Lower neck: Unremarkable. Cardiomediastinal: The heart is normal in size. Aorta is normal in caliber. No mediastinal lymphadeno baylee. Lungs: No focal pulmonary opacity. No pleural effusion. No pneumothorax. Hepatobiliary: A 0.8 cm nonenhancing hypodense lesion seen in the left hepatic lobe, segment IV most compatible with a cyst. A subcentimeter calcified granuloma noted in the right lobe, segment VII. Se veral subcentimeter calcified gallstones are seen. No gallbladder wall edema. No intrahepatic or ext rahepatic ductal dilatation. Spleen: Unremarkable. Pancreas: Unremarkable. Adrenal Glands: Redemonstration of a 2.4 x 1.8 cm hypoattenuating left adrenal nodule with average at tenuation of 31 Hounsfield units and postcontrast study and 0.4 Hounsfield units in unenhanced study. The low attenuation in the unenhanced studies diagnostic for a benign adenoma. No delayed phases acq uired to calculate degree of contrast washout although not required based on the findings in unenhanc ed study. tract: The kidneys are normal in size bilaterally without hydronephrosis or nephrolithiasis. The urinary bladder is unremarkable. GI tract: The stomach is grossly normal in appearance. No evidence of small bowel obstruction. There is sigmoid diverticulosis without diverticulitis. The appendix is not visualized. No inflammatory ch khushi is noted in the right lower quadrant. Lymphatics: No mesenteric, retroperitoneal or periportal lymphadenopathy. Vasculature: Aorta is normal in caliber. Scattered calcified plaques are noted. Pelvic Organs: Unremarkable. Bones/soft tissues: No acute abnormality. Multilevel degenerative changes of the lumbar spine noted. Other: None. IMPRESSION: 1. A 2.4 cm benign left adrenal adenoma. 2. Cholelithiasis without evidence of cholecystitis. 3. Subcentimeter left hepatic lobe cyst and a subcentimeter right hepatic lobe calcified granuloma. 4. Sigmoid diverticulosis without diverticulitis.
== END | disposition home or self-care (01) ==
LOC: Rad HDHVI 11:19
PROVIDERS: ATTEND Internal Medicine Cardiovascular Disease
DX: D35.02 Benign neoplasm of left adrenal gland (principal); K80.20 Calculus of gallbladder without cholecystitis without obstruction; K76.89 Other specified diseases of liver; K57.30 Diverticulosis of large intestine without perforation or abscess without bleeding; N28.1 Cyst of kidney, acquired
CPT/HCPCS: 71111; 74176; 74177; G0463; Q9967

== ENCOUNTER → 2024-06-04 | Outpatient (CLI) | payer MEDICARE, MEDICAID ==
[2024-06-04 09:03] VITALS: BP 140/60; PULSE 62; RESP 16; O2SAT 96
[2024-06-04 10:40] VITALS: BP 158/55; PULSE 53; RESP 16; O2SAT 96
--- NOTE | 2024-06-04 17:53 | DVH ---
Exam: CT CT AB PELV W WO CON-ORAL IV History: ADRENAL MASS Comparison Study: None available at time of dictation. Technique: Multidetector spiral CT of the abdomen and pelvis was performed from lung bases to pubic s ymphysis. Initial imaging was done without IV contrast, followed by post contrast images of the abdo men and pelvis. Intravenous contrast was administered during this examination. Multi phase imaging w as obtained. Axial, coronal and sagittal multiplanar reformats were performed by the technologist on a separate workstation. CONTRAST: Type of contrast: Omni 300 Contrast injected: 100 ml Radiation Dose : CT Dose: CTDI volume is 7.66 mGy. Dose-length product is 889.89 mGy*cm Findings: Lung Bases: No acute or significant lung base finding. Normal heart size. No pleural or pericardial effusion. Liver: Subcentimeter cyst. Gallbladder and biliary Tree: Cholelithiasis noted without secondary findings of cholecystitis or david iary obstruction. Spleen: Unremarkable Pancreas: The pancreas is normal in appearance without focal lesions or abnormal enhancement. Adrenal Glands: Low-density left adrenal nodule with washout measuring up to 24 mm consistent with a benign adrenal adenoma. Kidneys: Left upper pole renal cyst. No hydronephrosis. Bladder: Unremarkable Bowel: The stomach is grossly normal in appearance. Small bowel and colon are normal in caliber and d istribution. The appendix is not visualized; however, no secondary findings of acute appendicitis id entified. Sigmoid diverticulosis. Ascites: Absent Lymphadenopathy: No mesenteric, retroperitoneal or periportal lymphadenopathy. Abdominal wall and Mesentery: Unremarkable. Vasculature: The visualized abdominal aorta is normal in size and caliber. There is calcified atheros clerotic plaque involving the aorta and its branches. Abdominal and pelvic vessels demonstrate normal enhancement. Pelvic Organs: Unremarkable Musculoskeletal: Chronic appearing compression deformity of T12. Multilevel degenerative disease. IMPRESSION: 1. No acute abdominal or pelvic finding. Stable left adrenal adenoma measuring up to 24 mm. Subcentim eter hepatic cyst. Cholelithiasis. Left renal cyst. Sigmoid diverticulosis. Radiation optimization: All CT scans at this facility use at least one of these dose optimization benigno hniques: Automated exposure control mA and/or kV adjustment per patient size (includes targeted exams where dose is matched to clinical indication) or iterative reconstruction. HS:Y
== END | disposition home or self-care (01) ==
LOC: Rad HDHVI 08:56
PROVIDERS: ATTEND Internal Medicine Cardiovascular Disease
DX: D35.02 Benign neoplasm of left adrenal gland (principal); K80.20 Calculus of gallbladder without cholecystitis without obstruction; K57.30 Diverticulosis of large intestine without perforation or abscess without bleeding; N28.1 Cyst of kidney, acquired; K76.89 Other specified diseases of liver; M43.8X4 Other specified deforming dorsopathies, thoracic region; M47.816 Spondylosis without myelopathy or radiculopathy, lumbar region; I70.0 Atherosclerosis of aorta; E27.8 Other specified disorders of adrenal gland; R10.9 Unspecified abdominal pain
CPT/HCPCS: 74178; G0463; Q9967

== ENCOUNTER 2024-07-29 07:48 | Inpatient (IN) | payer MEDICARE, MEDICAID ==
[2024-07-28 09:12] LABS: Urine Bacteria None Seen /hpf (None Seen)
[2024-07-28 09:22] LABS: Basophils # (auto) 0 10 ^3/uL (0-0.2); Basophils % (auto) 0.6 % (0.0-2.0); Eosinophils # (auto) 0.2 10 ^3/uL (0-0.8); Eosinophils % (auto) 3.5 % (0.0-7.0); Hematocrit 39.9 % (36.0-46.0); Hemoglobin 13.9 g/dL (12.2-16.2); Lymphocytes # (auto) 2.2 10 ^3/uL (0.4-5.4); Lymphocytes % (auto) 34.6 % (10.0-50.0); Mean Corpuscular Hemoglobin 32.1 pg (28.0-32.0); Mean Corpuscular Hgb Conc. 34.7 g/dL (32.0-36.0); Mean Corpuscular Volume 92.5 fL (80.0-100.0); Monocytes # (auto) 0.6 10 ^3/uL (0-1.3); Monocytes % (auto) 9.3 % (0.0-12.0); Neutrophils # (auto) 3.3 10 ^3/uL (1.6-8.6); Platelet Count (auto) 183 10^3/uL (140-450); Red Blood Cells 4.32 10^6/uL (4.0-5.20); Red Cell Distribution Width 13.1 % (11.8-14.3); White Blood Cell 6.4 10^3/uL (4.4-10.8)
[2024-07-28 09:37] LABS: INR 0.98 (0.9-1.15); Partial Thromboplastin Time 27.5 SEC (24.5-34.5); Prothrombin Time 10.4 sec (9.3-11.8)
[2024-07-28 09:41] LABS: Alanine Aminotransferase 16 U/L (7-40); Albumin 4.7 g/dL (3.2-4.8); Alkaline Phosphatase 74 U/L (46-116); Anion Gap 11 (5-15); Aspartate Aminotransferase 18 U/L (<34); BUN/Creatinine Ratio 18.8 (10.0-20.0); Calcium 10.4 mg/dL (8.7-10.4); Carbon Dioxide 25 mmol/L (20-31); Chloride 107 mmol/L (98-107); Glucose 88 mg/dL (74-106); Potassium 4.4 mmol/L (3.5-5.1); Sodium 143 mmol/L (136-145); Total Protein 7.4 g/dL (5.7-8.2)
[2024-07-28 09:42] LABS: Bilirubin, Total 0.5 mg/dL (0.2-1.0); Urine Blood Negative /uL (Negative); Urine Clarity Clear (Clear); Urine Color Colorless (Yellow); Urine Protein, UAD Negative (Negative); Urine Specific Gravity 1.005 (1.001-1.035); Urine Squamous Epithelial Cell FEW /hpf (<5); Urine Urobilinogen Normal (Negative); Urine WBC 1 /HPF (0-5)
[2024-07-28 10:19] LABS: Blood Urea Nitrogen 29 mg/dL (9-23)
[~2024-07-29] VITALS: Ht 162.6 cm; Wt 184.3 kg
[~2024-07-29 07:48] MED LIST changes: -ASPI1TAB20 PO; -ESOM40CA39 PO; -IOHEXOL 350 MG/ML 100ML IJ ONE; +LEVO75CA3 PO; -METO25TA5 PO; -READI-CAT 2 (BARIUM SULF)(VANILLA SMOOTHIE) 450ML ONE; -ROSU20TA14 PO
[2024-07-29] MEDS ORDERED: MIDAZOLAM HCL 2MG/2ML 2ml VIAL (1mg/ml) ONE (11:50)
[2024-07-29] MEDS ORDERED: PROPOFOL 10 MG/ML 20 ML IV ONE (11:50)
[2024-07-29] MEDS ORDERED: ROCURONIUM 10MG/ML 10ML VIAL IV ONE (11:50)
[2024-07-29] MEDS ORDERED: fentaNYL CITRATE 100 MCG/2 ML VL ONE (11:50)
[2024-07-29] MEDS ORDERED: METOCLOPRAMIDE HCL 5MG/ml INJ 2ml VIAL ONE (11:51)
[2024-07-29] MEDS ORDERED: ONDANSETRON HCL 4 MG/2 ML VIAL ONE (11:51)
[2024-07-29] MEDS ORDERED: LIDOCAINE 2% (LOCAL ANESTH.) PF 5ml SDV ONE (11:51)
[2024-07-29] MEDS: levoFLOXacin 500MG 100 ML IV ONE (11:54)
[2024-07-29] MEDS: LIDOCAINE W/ EPINEPHRINE 1% 20ML VIAL ONE (12:10)
[2024-07-29] MEDS: BUPIVACAINE 0.5% P/F INJ 10 ML VIAL ONE (12:10)
[2024-07-29] MEDS ORDERED: ePHEDrine SULFATE 50 MG/ML AMP ONE (12:12)
[2024-07-29] MEDS ORDERED: HYDROmorphone HCL 2 MG/ML VL/or syr ONE (12:25)
[2024-07-29] MEDS ORDERED: SUGAMMADEX 200mg/2ml Vial (100MG/ML) IV ONE (12:26)
[2024-07-29 12:43] VITALS: O2SAT 100
[2024-07-29] MEDS: D5W/SOD CHL 0.45%/KCL 20MEQ 1,000 ML IV SCH (12:45)
[2024-07-29] MEDS: HYDROmorphone HCL 2 MG/ML VL/or syr IV PRN (13:32)
--- NOTE | 2024-07-29 13:58 | DVHHP2 ---
Review of Systems Allergies: Coded Allergies: Codeine (Verified Allergy, Unknown, 04/25/17) Penicillins (Verified Allergy, Unknown, 04/25/17) Sulfa Antibiotics (Verified Allergy, Unknown, 04/25/17) Acetaminophen (Unverified Adverse Reaction, Intermediate, N/V, 07/28/24) Hydrocodone (Unverified Adverse Reaction, Intermediate, N/V, 07/28/24) Medications Current Medications Medications Dose Ordered Sig/Noy Route Start Time Stop Time Status Last Admin Dose Admin Potassium Chloride/Dextrose/ Sod Cl 1,000 ml @ 100 mls/hr Q10H IV 07/29/24 12:45 Levofloxacin 50 ml @ 50 mls/hr DAILY IV 07/30/24 10:00 Exam Vital Signs Vital Signs Date Time Temp Pulse Resp B/P (MAP) Pulse Ox O2 Delivery O2 Flow Rate FiO2 07/29/24 12:43 100 Mask 10.0 07/29/24 12:43 100 07/29/24 08:00 98.0 70 18 149/89 (109) 98.0 Labs/Xrays Labs Test 07/28/24 09:07 Range/Units White Blood Count 6.4 4.4-10.8 10^3/uL Red Blood Count 4.32 4.0-5.20 10^6/uL Hemoglobin 13.9 12.2-16.2 g/dL Hematocrit 39.9 36.0-46.0 % Mean Corpuscular Volume 92.5 80.0-100.0 fL Mean Corpuscular Hemoglobin 32.1 H 28.0-32.0 pg Mean Corpuscular Hemoglobin Concent 34.7 32.0-36.0 g/dL Red Cell Distribution Width 13.1 11.8-14.3 % Platelet Count 183 140-450 10^3/uL Mean Platelet Volume 7.8 6.9-10.8 fL Neutrophils (%) (Auto) 52.0 37.0-80.0 % Lymphocytes (%) (Auto) 34.6 10.0-50.0 % Monocytes (%) (Auto) 9.3 0.0-12.0 % Eosinophils (%) (Auto) 3.5 0.0-7.0 % Basophils (%) (Auto) 0.6 0.0-2.0 % Neutrophils # (Auto) 3.3 1.6-8.6 10 ^3/uL Lymphocytes # (Auto) 2.2 0.4-5.4 10 ^3/uL Monocytes # (Auto) 0.6 0-1.3 10 ^3/uL Eosinophils # (Auto) 0.2 0-0.8 10 ^3/uL Basophils # (Auto) 0 0-0.2 10 ^3/uL Nucleated Red Blood Cells 0.0 % Prothrombin Time 10.4 9.3-11.8 sec Prothrombin Time INR 0.98 0.9-1.15 Activated Partial Thromboplast Time 27.5 24.5-34.5 SEC Urine Color Colorless Yellow Urine Clarity Clear Clear Urine pH 5.0 5.0-9.0 Urine Specific [place] 1.005 1.001-1.035 Urine Protein Negative Negative Urine Ketones Negative Negative Urine Blood Negative Negative /uL Urine Nitrite Negative Negative Urine Bilirubin Negative Negative Urine Urobilinogen Normal Negative mg/dL Urine Leukocyte Esterase Negative Negative /uL Urine RBC <1 0 - 4 /hpf Urine Microscopic WBC 1 0-5 /HPF Urine Squamous Epithelial Cells Few <5 /hpf Urine Bacteria None seen None Seen /hpf Urine Glucose Normal Normal mg/dL Sodium Level 143 136-145 mmol/L Potassium Level 4.4 3.5-5.1 mmol/L Chloride Level 107 98-107 mmol/L Carbon Dioxide Level 25 20-31 mmol/L Anion Gap 11 5-15 Blood Urea Nitrogen 29 H 9-23 mg/dL Creatinine 1.54 H 0.550-1.02 mg/dL Glomerular Filtration Rate Calc 34 >90 mL/min BUN/Creatinine Ratio 18.8 10.0-20.0 Serum Glucose 88 74-106 mg/dL Calcium Level 10.4 8.7-10.4 mg/dL Total Bilirubin 0.5 0.2-1.0 mg/dL Aspartate Amino Transferase (AST) 18 <34 U/L Alanine Aminotransferase (ALT) 16 7-40 U/L Alkaline Phosphatase 74 46-116 U/L Total Protein 7.4 5.7-8.2 g/dL Albumin 4.7 3.2-4.8 g/dL Assessment/Plan Assessment/Plan see dictated note Plan discussed with: Patient My Orders Orders - FRANTZ ASHLEY MD Procedure Category Date Status Time Admit ADMIT 07/29/24 Transmitted 13:54 Date of Service: Jul 29, 2024 Billing Provider: FRANTZ ASHLEY MD Common Visit Codes: [id number] INP/OBS CARE (HIGH) FRANTZ ASHLEY MD Jul 29, 2024 13:58
[2024-07-29] MEDS ORDERED: MORPHINE SULFATE INJ 2 MG/ml SYRG IV PRN (14:00)
[2024-07-29] MEDS ORDERED: ONDANSETRON HCL 4 MG/2 ML VIAL IV PRN (14:00)
[2024-07-29] MEDS ORDERED: hydrALAZINE HCL 20 MG/ML VL IV PRN (14:00)
[2024-07-29] MEDS ORDERED: traMADol HCL 50 MG TAB PO PRN (14:00)
--- NOTE | 2024-07-29 14:05 | DVHOP ---
DATE OF SURGERY: 07/29/2024 PREOPERATIVE DIAGNOSES: * Cholelithiasis. * Chronic cholecystitis. * Biliary colic. POSTOPERATIVE DIAGNOSES: * Cholelithiasis. * Chronic cholecystitis. * Biliary colic. SURGEON: Ion Wheeler MD. CROSSBAR FRAME WIRER: Mauri Krishnamurthy. ANESTHESIA: General endotracheal. ANESTHESIOLOGIST: Misbah Castillo. PROCEDURE: Laparoscopy, laparoscopic cholecystectomy. DESCRIPTION OF PROCEDURE: Under adequate anesthesia with the patient's skin prepped and draped, a supraumbilical incision was made and Veress needle inserted by the hanging drop technique in order to establish pneumoperitoneum to 15 mmHg pressure by insufflation of carbon dioxide. With the abdomen fully distended, the needle was removed and replaced with a 5 mm trocar port through which a 0-degree viewing laparoscope was inserted. Under direct vision, additional 5 and 10 mm ports were inserted through the abdominal wall at the right anterior axillary line at the level of the umbilicus and the subxiphoid skin in the midline respectively. Instrumentation was then introduced. The extent of the examination was limited by the patient's obesity; however, no obvious unexpected pathology was encountered. The gallbladder was found to be chronically inflamed and was placed on tension. The cystic duct and cystic artery were identified, circumferentially dissected, skeletonized, and traced into the hepaticocystic triangle so as to minimize the potential for inadvertent injury to the common bile duct. The cystic duct and cystic artery were then divided close to the gallbladder, again attempting to avoid any inadvertent injury to the common bile duct. Following division of the cystic duct and cystic artery between metallic clips, the gallbladder was resected from its liver bed by electrocautery and traction. A fully mobilized gallbladder was then removed from the peritoneal cavity by placement in a specimen extraction bag, which was withdrawn through the 10 mm port site in the subxiphoid position. The right upper quadrant was then profusely irrigated. Irrigant was aspirated. Hemostasis was meticulously inspected and found to be complete. The liver bed was used for placement of a Biodefense Sentry 2 x 4 cm graft to avoid formation of adhesions. The abdomen was then inspected one more time for hemostasis, which was again found to be complete at the liver bed as well as the port sites. Instrumentation was withdrawn. Pneumoperitoneum was evacuated. Fascial defect closed using #0 Vicryl. Skin was approximated using Monocryl sutures, Dermabond glue, and Steri-Strips. The patient was in stable condition throughout the procedure and left the operating room following an accurate needle and sponge count. The patient's daughter was thoroughly informed in the waiting room. MD NEL Davalos/CHRISTI TID: [id number] RECEIPT: [id number]
--- NOTE | 2024-07-29 14:06 | DVHHP ---
ADMIT DATE: 07/29/2024 HISTORY OF PRESENT ILLNESS: The patient is an 79-year-old lady who was admitted after she underwent laparoscopic cholecystectomy for cholelithiasis and chronic cholecystitis. The patient at this time denies any significant pain. No chest pain. No shortness of breath. No nausea or vomiting. Review of rest of other systems is currently negative. PAST MEDICAL HISTORY: Significant for hypertension and hypothyroidism. MEDICATIONS: She takes amlodipine and levothyroxine. ALLERGIES: Several and listed in the records. SOCIAL HISTORY: No history of smoking or alcohol. Lives at home with family. FAMILY HISTORY: Negative. PHYSICAL EXAMINATION: GENERAL: The patient is awake and alert. VITAL SIGNS: Temperature of 98, pulse 70 per minute, blood pressure 149/89. SHEENT: Unremarkable. There is no JVD. No pedal edema. LUNGS: Equal bilaterally. No added sounds. CARDIOVASCULAR: S1 and S2 is regular without murmurs. ABDOMEN: Soft. There is no organomegaly. Bowel sounds are hypoactive. NEUROLOGIC: Nonfocal. MUSCULOSKELETAL: Normal. ASSESSMENT AND PLAN: * Hypertension. Blood pressure will be monitored. * Hypothyroidism. The patient will resume her home medications and a TSH will be obtained. * Status post laparoscopic cholecystectomy for cholelithiasis and chronic cholecystitis. She will be placed on IV fluids along with pain medications and a clear liquid diet. MD EMILIE Giron/ALYCIA TID: [id number] RECEIPT: [id number]
[2024-07-29] MEDS: ONDANSETRON HCL 4 MG/2 ML VIAL IV ONE (18:40)
[2024-07-29 21:00] VITALS: BP 145/71; PULSE 76; RESP 19; TEMP 97.9; O2SAT 94
[2024-07-30] VITALS (7 sets, daily range): BP systolic 126–152; BP diastolic 62–72; PULSE 69–90; RESP 16–20; TEMP 97.4–99.3; O2SAT 90–94
[2024-07-30] MEDS: LEVOTHYROXINE SODIUM 25 MCG TAB PO SCH (05:31)
[2024-07-30 05:42] LABS: Basophils # (auto) 0 10 ^3/uL (0-0.2); Eosinophils # (auto) 0 10 ^3/uL (0-0.8); Hematocrit 35.7 % (36.0-46.0); Hemoglobin 12.3 g/dL (12.2-16.2); Lymphocytes # (auto) 1.4 10 ^3/uL (0.4-5.4); Lymphocytes % (auto) 11.2 % (10.0-50.0); Mean Corpuscular Hgb Conc. 34.5 g/dL (32.0-36.0); Mean Corpuscular Volume 92.7 fL (80.0-100.0); Monocytes # (auto) 0.8 10 ^3/uL (0-1.3); Monocytes % (auto) 6.3 % (0.0-12.0); Neutrophils # (auto) 10.2 10 ^3/uL (1.6-8.6); Neutrophils % (auto) 82.5 % (37.0-80.0); Platelet Count (auto) 158 10^3/uL (140-450); Red Blood Cells 3.86 10^6/uL (4.0-5.20); Red Cell Distribution Width 13.1 % (11.8-14.3); White Blood Cell 12.4 10^3/uL (4.4-10.8)
[2024-07-30 06:03] LABS: Albumin 3.9 g/dL (3.2-4.8); Alkaline Phosphatase 58 U/L (46-116); Anion Gap 11 (5-15); BUN/Creatinine Ratio 15.5 (10.0-20.0); Bilirubin, Total 0.6 mg/dL (0.2-1.0); Carbon Dioxide 23 mmol/L (20-31); Chloride 106 mmol/L (98-107); Sodium 140 mmol/L (136-145); Total Protein 6.2 g/dL (5.7-8.2)
[2024-07-30 06:04] LABS: Alanine Aminotransferase 73 U/L (7-40); Aspartate Aminotransferase 74 U/L (<34); Blood Urea Nitrogen 23 mg/dL (9-23); Calcium 8.4 mg/dL (8.7-10.4); Glucose 140 mg/dL (74-106)
--- NOTE | 2024-07-30 07:40 | DVHPN2 ---
Progress Note Date Seen: Jul 30, 2024 Medical Necessity Reason Pt with a Central, PICC or Fol: No Objective vital signs Vital Sign Date Time Temp Pulse Resp B/P (MAP) Pulse Ox O2 Delivery O2 Flow Rate FiO2 07/30/24 04:48 97.6 78 20 137/71 (93) 93 97.6 07/29/24 20:00 Room Air* 0 21 Total Intake and Output 07/29/24 07/29/24 07/30/24 15:00 23:00 07:00 Intake Total 200 ml 1250 ml Balance 200 ml 1250 ml medications Current Medications Medications Dose Ordered Sig/Noy Route Start Time Stop Time Status Last Admin Dose Admin Potassium Chloride/Dextrose/ Sod Cl 1,000 ml @ 100 mls/hr Q10H IV 07/29/24 12:45 07/29/24 23:00 100 MLS/HR Levofloxacin 50 ml @ 50 mls/hr DAILY IV 07/30/24 10:00 Morphine Sulfate 2 mg Q4HPRN PRN IV 07/29/24 14:00 Hold Tramadol HCl 50 mg Q6HP PRN PO 07/29/24 14:00 Hold Ondansetron HCl 4 mg Q6HPRN PRN IV 07/29/24 14:00 Hydralazine HCl 10 mg Q6HP PRN IV 07/29/24 14:00 Levothyroxine Sodium 75 mcg QAM@0600 PO 07/30/24 06:00 07/30/24 05:31 75 MCG laboratory and microbiology Laboratory Tests 07/30/24 05:03 Test 07/30/24 05:03 Range/Units Serum Glucose 140 H 74-106 mg/dL Problem List/Assessment/Plan Problem List/Assessment/Plan 07/30/24 FEELS OK, AMBULATED, PASSING FLATUS, NO NAUSEA, ABDOMEN APPROPRIATELY TENDER, WOUNDS OK, WILL INCREASE PO INTAKE, CAN BE DISCHARGED THIS PM, LABS REVIEWED Plan discussed with: Patient NEAL KATHLEEN MD Jul 30, 2024 07:40
[2024-07-30] MEDS: METOCLOPRAMIDE HCL 5MG/ml INJ 2ml VIAL IV ONE (08:54)
[2024-07-30] MEDS: levoFLOXacin 250MG 50 ML IV SCH (11:00)
[2024-07-30] MEDS ORDERED: TRAM-626 PO (15:58)
[2024-07-30] MEDS ORDERED: CEPH500C PO (15:58)
[2024-07-30] MEDS ORDERED: DOCU-94 PO (15:58)
--- NOTE | 2024-07-30 16:01 | DVHDS2 ---
Discharge Summary Date of Admission Jul 29, 2024 at 13:54 Date of Discharge: Jul 30, 2024 Labs/Diagnostic Data: Laboratory Results Test 07/30/24 05:03 07/28/24 09:07 White Blood Count 12.4 10^3/uL (4.4-10.8) Red Blood Count 3.86 10^6/uL (4.0-5.20) Hemoglobin 12.3 g/dL (12.2-16.2) Hematocrit 35.7 % (36.0-46.0) Mean Corpuscular Volume 92.7 fL (80.0-100.0) Mean Corpuscular Hemoglobin 32.0 pg (28.0-32.0) Mean Corpuscular Hemoglobin Concent 34.5 g/dL (32.0-36.0) Red Cell Distribution Width 13.1 % (11.8-14.3) Platelet Count 158 10^3/uL (140-450) Mean Platelet Volume 7.7 fL (6.9-10.8) Neutrophils (%) (Auto) 82.5 % (37.0-80.0) Lymphocytes (%) (Auto) 11.2 % (10.0-50.0) Monocytes (%) (Auto) 6.3 % (0.0-12.0) Eosinophils (%) (Auto) 0.0 % (0.0-7.0) Basophils (%) (Auto) 0.0 % (0.0-2.0) Neutrophils # (Auto) 10.2 10 ^3/uL (1.6-8.6) Lymphocytes # (Auto) 1.4 10 ^3/uL (0.4-5.4) Monocytes # (Auto) 0.8 10 ^3/uL (0-1.3) Eosinophils # (Auto) 0 10 ^3/uL (0-0.8) Basophils # (Auto) 0 10 ^3/uL (0-0.2) Nucleated Red Blood Cells 0.0 % Sodium Level 140 mmol/L (136-145) Potassium Level 4.0 mmol/L (3.5-5.1) Chloride Level 106 mmol/L (98-107) Carbon Dioxide Level 23 mmol/L (20-31) Anion Gap 11 (5-15) Blood Urea Nitrogen 23 mg/dL (9-23) Creatinine 1.48 mg/dL (0.550-1.02) Glomerular Filtration Rate Calc 35 mL/min (>90) BUN/Creatinine Ratio 15.5 (10.0-20.0) Serum Glucose 140 mg/dL (74-106) Calcium Level 8.4 mg/dL (8.7-10.4) Total Bilirubin 0.6 mg/dL (0.2-1.0) Aspartate Amino Transferase (AST) 74 U/L (<34) Alanine Aminotransferase (ALT) 73 U/L (7-40) Alkaline Phosphatase 58 U/L (46-116) Total Protein 6.2 g/dL (5.7-8.2) Albumin 3.9 g/dL (3.2-4.8) Thyroid Stimulating Hormone (TSH) 0.24 uIU/mL (0.55-4.78) Prothrombin Time 10.4 sec (9.3-11.8) Prothrombin Time INR 0.98 (0.9-1.15) Activated Partial Thromboplast Time 27.5 SEC (24.5-34.5) Urine Color Colorless (Yellow) Urine Clarity Clear (Clear) Urine pH 5.0 (5.0-9.0) Urine Specific [place] 1.005 (1.001-1.035) Urine Protein Negative (Negative) Urine Ketones Negative (Negative) Urine Blood Negative /uL (Negative) Urine Nitrite Negative (Negative) Urine Bilirubin Negative (Negative) Urine Urobilinogen Normal mg/dL (Negative) Urine Leukocyte Esterase Negative /uL (Negative) Urine RBC <1 /hpf (0 - 4) Urine Microscopic WBC 1 /HPF (0-5) Urine Squamous Epithelial Cells Few /hpf (<5) Urine Bacteria None seen /hpf (None Seen) Urine Glucose Normal mg/dL (Normal) Other Laboratory Tests 07/30/24 05:03 Brief Hx & Hospital Course: see dictated note Condition at Discharge: Fair Final Diagnosis/Problems List LAP TONY Discharge Disposition: Home Discharge Instruct/Medications Diet: Cardiac 2g Na,low cholest Activity: No Restrictions, As Tolerated Follow Up/Referral: SCHEDULE APPT WITH DR KATHLEEN IN 1 WK Medications: RESUME HOME MEDS SCRIPT TO PHARMACY Discharge Statement: "Patient was advised to return to the ER or call 911 if any headaches, dizziness, shortness of breath, chest pain, abdominal pain, bleeding, fevers, or worsening of medical condition. Patient was counseled about treatment plan, medications, possible side effects, patientverbalized understanding. All questions were answered to the best of my ability. This discharge took greater then 30 minutes in planning, reviewing documentation, counseling the patient, and discussing with other team members." ASSESSMENT ASSESSMENT Assessment ZEFERINO JIMENEZ Date of Service: Jul 30, 2024 Billing Provider: FRANTZ ASHLEY MD Common Visit Codes: [id number] DISCH DAY >30min FRANTZ ASHLEY MD Jul 30, 2024 16:01
--- NOTE | 2024-07-30 16:21 | DVHDS ---
The patient is an 79-year-old lady who was admitted after she underwent laparoscopic cholecystectomy for cholelithiasis and chronic cholecystitis. The patient has a previous history of hypertension and hypothyroidism. HOSPITAL COURSE: The patient did well postoperatively. She is currently tolerating oral diet. She has been cleared for discharge by Dr. Wheeler to resume her home medications as well as to be on Keflex 500 mg t.i.d. for seven days, tramadol p.r.n. for pain, and Colace p.r.n. for constipation. She will follow up with Dr. Wheeler in one week. FINAL DIAGNOSES: * Hypertension. * Hypothyroidism. * Obesity. * Status post laparoscopic cholecystectomy for cholelithiasis and chronic cholecystitis. Time spent in discharge planning and review of plan with the patient and nursing was 38 minutes. MD EMILIE Giron/SUZY TID: [id number] RECEIPT: [id number]
[2024-08-01] MEDS ORDERED: LEVO500T91 PO (12:35)
--- NOTE | 2024-08-01 12:37 | PRN ---
Misceleneous Note Note Note due to penicillin allergy, resent levofloxacin inplace of SUSANNA Small MD Aug 01, 2024 12:37
== END 2024-07-30 17:40 | disposition home or self-care (01) | DRG 419 ==
LOC: SUR 07:48 → OVERFLOW 13:54 → WEST WING 18:06
PROVIDERS: ADMIT Internal Medicine; ATTEND Internal Medicine
PROC: 0FT44ZZ Resection of Gallbladder, Percutaneous Endoscopic Approach (ICD-10-PCS; principal; 2024-07-29 11:53)
DX: K80.64 Calculus of gallbladder and bile duct with chronic cholecystitis without obstruction (principal); I10 Essential (primary) hypertension; E03.9 Hypothyroidism, unspecified; E66.9 Obesity, unspecified; Z68.31 Body mass index [BMI] 31.0-31.9, adult; K59.00 Constipation, unspecified; Z88.5 Allergy status to narcotic agent; Z88.0 Allergy status to penicillin; Z88.2 Allergy status to sulfonamides
CPT/HCPCS: 36415; 80053; 81001; 84443; 85025; 85610; 85730; 86850; 86900; 86901; 87070; 87075; G0378; J1956; J2003; J2250; J2405; J2704; J3490

== ENCOUNTER 2024-12-17 09:00 | Day surgery (SDC) | payer MEDICARE, MEDICAID ==
[2024-12-14 14:53] LABS: Urine Protein, UAD Negative (Negative)
[2024-12-14 15:27] LABS: INR 0.95 (0.9-1.15); Partial Thromboplastin Time 26.2 SEC (24.5-34.5); Prothrombin Time 10.1 sec (9.3-11.8)
[2024-12-14 16:00] LABS: Hematocrit 39.6 % (36.0-46.0); Hemoglobin 13.7 g/dL (12.2-16.2); Mean Corpuscular Hemoglobin 32.1 pg (28.0-32.0); Mean Corpuscular Volume 92.6 fL (80.0-100.0); Nucleated Red Blood Cells % 0.1 %
[2024-12-14 16:21] LABS: Alanine Aminotransferase 14 U/L (7-40); Albumin 4.6 g/dL (3.2-4.8); Anion Gap 10 (5-15); BUN/Creatinine Ratio 21.0 (10.0-20.0); Calcium 9.7 mg/dL (8.7-10.4); Carbon Dioxide 22 mmol/L (20-31); Potassium 4.4 mmol/L (3.5-5.1); Sodium 141 mmol/L (136-145); Total Protein 7.7 g/dL (5.7-8.2)
[2024-12-14 16:27] LABS: Alkaline Phosphatase 117 U/L (46-116); Bilirubin, Total 0.3 mg/dL (0.2-1.0); Blood Urea Nitrogen 30 mg/dL (9-23); Chloride 109 mmol/L (98-107); Glucose 109 mg/dL (74-106)
[~2024-12-17] VITALS: Ht 162.6 cm; Wt 73.5 kg
[~2024-12-17 09:00] MED LIST changes: +DOCU-94 PO; +LEVO500T91 PO; +TRAM-626 PO
[2024-12-17] MEDS ORDERED: PROPOFOL 10 MG/ML 20 ML IV ONE (10:06)
[2024-12-17 10:30] VITALS: PULSE 64; RESP 16; TEMP 97.6; O2SAT 96
--- NOTE | 2024-12-17 10:31 | DVHHP2 ---
GI H&P Pre-Op Assessment Date: 12/17/24 Chief complaint: colon cancer screening, bloating HPI: per clinic note Past medical history: per clinic note Past surgical history: per clinic note Family history: per clinic note Physical exam: General: NAD, AAOX3 HEENT: PERRL, no scleral icterus, normal hearing, gums without lesions or bleeding, oropharynx clear without erythema or exudate. Neck: Supple without enlargement of the thyroid, or lymphadenopathy. Chest: Normal size and shape, no tenderness, lung perez clear to auscultation and percussion, nonlabored breathing. Heart: RRR, no murmur Abdomen: non-distended, no tenderness to palpation, +BS, no hepatosplenomegaly Extremities: no edema Neurological: CN II-XII intact, sensation intact in all extremities, 5+ strength in all extremities Skin: No rashes, No jaundice Assessment: - colon cancer screening - bloating Plan: - EGD - Colonoscopy - Risks (bleeding, infection, perforation, reaction to sedation medications and cardiopulmonary arrest) and benefit of the procedure were explained to patient. Patient agrees to undergo the procedure. HAYES DUONG MD Dec 17, 2024 10:31
--- NOTE | 2024-12-17 10:33 | DVHOP2 ---
Operative Report DATE OF OPERATION: 12/17/24 PROCEDURE: Upper Endoscopy. PREOPERATIVE INDICATION: The patient is a 79 -year-old female undergoing endoscopy for bloating POSTOPERATIVE DIAGNOSES: 1. Moderate gastritis 2. 1 cm hiatal hernia PROCEDURE PERFORMED BY: Joao Mixon SCOPE: Olympus videoendoscope. ASA CLASS: 3 PREOPERATIVE MEDICATIONS: MAC with Dr De La Torre PROCEDURE IN DETAIL: After obtaining an informed consent, the patient was placed on her back The patient was then sedated with the above medications. A bite block was placed between her teeth. The endoscope was then passed through the oropharynx, into the esophagus, and through the stomach and pylorus up to the second and third part of the duodenum. The duodenum was normal in appearance. There was moderate gastritis. Gastric biopsies were obtained using cold biopsy forceps. There was a 1 cm hiatal hernia. The GE junction was normal in appearance at 32 cm. The esophagus was normal in appearance. The endoscope was then withdrawn. The patient tolerated the procedure well without difficulty. COMPLICATIONS : None SPECIMENS: Gastric biopsies DISPOSITION: D/C to home PLAN: 1. Await for biopsy result JOAO MIXON MD Dec 17, 2024 10:33
--- NOTE | 2024-12-17 10:35 | DVHOP2 ---
Operative Report DATE OF OPERATION: 12/17/24 PROCEDURE: Colonoscopy. PREOPERATIVE INDICATION: The patient is a 79 -year-old female with history of colon polyp undergoing colonoscopy for colon cancer screening. POSTOPERATIVE DIAGNOSES: 1. 2 mm transverse colon polyp was removed with cold forceps. 2. 1 mm descending colon polyp was removed with cold biopsy forceps. 3. Severe diverticulosis in the sigmoid colon. 4. Internal hemorrhoids PROCEDURE PERFORMED BY: Joao Mixon M.D. SCOPE: Olympus videocolonoscope. ASA CLASS: 3 PREOPERATIVE MEDICATIONS: MAC with Dr De La Torre PROCEDURE IN DETAIL: After obtaining an informed consent, the patient was placed on left lateral decubitus position. She was then sedated with the above medications. A rectal examination was performed that was normal. The colonoscope was then passed through the anus into the rectosigmoid and through the descending, transverse, and ascending colon up to the cecum with visualization of the appendiceal orifice, base of the cecum and the ileocecal valve. A 2 mm transverse colon polyp was removed with cold forceps. A 1 mm desc ending colon polyp was removed with cold biopsy forceps. There was severe diverticulosis in the sigmoid colon. There were internal hemorrhoids. The colonoscope was then withdrawn. The patient tolerated the procedure well without difficulty. WITHDRAWAL TIME: 7 minutes QUALITY OF THE PREP: [place] Bowel Prep score: 6 COMPLICATIONS : None SPECIMENS: Colon polyps DISPOSITION: D/C to home PLAN: 1. Repeat colonoscopy base on biopsy result JOAO MIXON MD Dec 17, 2024 10:35
--- NOTE | 2024-12-17 10:36 | DVHDS2 ---
Physician Discharge Progress N Final Diagnosis: Gastritis Colon polyps, diverticulosis, internal hemorrhoids Operations or Procedures: Operations or Procedures EGD with cold biopsies. Colonoscopy with cold biopsy polypectomy Condition on Discharge: Good Disposition: Home Discharge Instructions: Diet: Regular Activity: No Restrictions, As Tolerated Medications: Resume previous home medications Follow Up Care: Discharge Statement: "Patient was advised to return to the ER or call 911 if any headaches, dizziness, shortness of breath, chest pain, abdominal pain, bleeding, fevers, or worsening of medical condition. Patient was counseled about treatment plan, medications, possible side effects, patientverbalized understanding. All questions were answered to the best of my ability. This discharge took greater then 30 minutes in planning, reviewing documentation, counseling the patient, and discussing with other team members." HAYES DUONG MD Dec 17, 2024 10:36
[2024-12-17 11:00] VITALS: BP 147/66; PULSE 59; RESP 17; O2SAT 98
== END 2024-12-17 11:20 | disposition home or self-care (01) ==
LOC: GI 09:00
PROVIDERS: ATTEND Internal Medicine Gastroenterology
DX: K57.30 Diverticulosis of large intestine without perforation or abscess without bleeding (principal); K63.5 Polyp of colon; D12.2 Benign neoplasm of ascending colon; R14.1 Gas pain; K44.9 Diaphragmatic hernia without obstruction or gangrene; K64.8 Other hemorrhoids; R14.0 Abdominal distension (gaseous); K29.50 Unspecified chronic gastritis without bleeding; I12.9 Hypertensive chronic kidney disease with stage 1 through stage 4 chronic kidney disease, or unspecified chronic kidney disease; N18.30 Chronic kidney disease, stage 3 unspecified; E03.9 Hypothyroidism, unspecified; Z85.3 Personal history of malignant neoplasm of breast; Z79.899 Other long term (current) drug therapy; Z86.0100 Personal history of colon polyps, unspecified; Z98.890 Other specified postprocedural states; Z79.890 Hormone replacement therapy
CPT/HCPCS: 36415; 43239; 45380; 80053; 81001; 85025; 85610; 85730; 88305; 88313; 88342; J2704

== ENCOUNTER 2025-01-07 12:17 | Emergency (ER) | payer MEDICARE, MEDICAID ==
[~2025-01-07] VITALS: Ht 162.6 cm; Wt 75.0 kg
[2025-01-07 12:18] VITALS: TEMP 98.6
[2025-01-07] MEDS: ACETAMINOPHEN 325 MG TAB PO ONE (12:48)
--- NOTE | 2025-01-07 12:56 | ED.PDOC ---
History of Present Illness HPI Comments A 79 YEAR OLD FEMALE PRESENTS TO THE ED WITH COMPLAINT OF HIGH BLOOD PRESSURE AND HEADACHE. PATIENT STATES SHE HAS A HISTORY OF HYPERTENSION AND USUALLY TAKES AMLODIPINE 5 MG EACH DAY. PATIENT REPORTS SHE NOTICED THAT HER BLOOD PRESSURE HAS BEEN ELEVATED RECENTLY DUE TO BEING UNDER STRESS AND HAS ALSO HAD A HEADACHE A RESULT FOR THE PAST 3 DAYS. PATIENT DENIES VISION CHANGES, SLURRED SPEECH, ONE-SIDED WEAKNESS, FACIAL DROOP, FEVER, CHILLS, SHORTNESS OF BREATH, CHEST PAIN, ABDOMINAL PAIN, NAUSEA, VOMITING, OR OTHER COMPLAINTS. NO OTHER SYMPTOMS OR MODIFYING FACTORS AT THIS TIME. PATIENT IS ALERT, ORIENTED X 4, AND HAS STEADY GAIT. Chief Complaint: High Blood Pressure Time Seen by MD: 12:24 Reviewed Notes: Nurses Notes, Medications, Allergies Allergies: Coded Allergies: Codeine (Verified Allergy, Unknown, 04/25/17) Penicillins (Verified Allergy, Unknown, 04/25/17) Sulfa Antibiotics (Verified Allergy, Unknown, 04/25/17) Acetaminophen (Unverified Adverse Reaction, Intermediate, N/V, 07/28/24) Hydrocodone (Unverified Adverse Reaction, Intermediate, N/V, 07/28/24) Home Meds Active Scripts Levofloxacin Hemihydrate (LEVOFLOXACIN) 500 Mg Tab, 1 TAB PO DAILY for 7 Days, #7 TAB Prov:SUSANNA MANUEL MD 08/01/24 Docusate Sodium (Colace) 100 Mg Cap, 100 MG PO BIDP PRN for 15 Days, #40 CAP Prov:FRANTZ ASHLEY MD 07/30/24 Tramadol HCl (Tramadol HCl) 50 Mg Tab, 50 MG PO TIDP PRN for 6 Days, #18 TAB Prov:FRNATZ ASHLEY MD 07/30/24 Reported Medications Levothyroxine Sodium (Levothyroxine Sodium) 75 Mcg Cap, 75 MCG PO AC, CAP 07/28/24 Amlodipine Besylate (Amlodipine Besylate) 5 Mg Tab, 10 MG PO DAILY for 30 Days, MG 01/24/15 Information Source: Patient Mode of Arrival: Ambulatory Severity: Moderate Timing: Days Duration: Since onset, Other Prehospital treatment: None Medication Refill: For: Hypertension, For: Other (HEADACHE AND HIGH BLOOD PRESSURE) Past Medical History PAST MEDICAL HISTORY: Cancer, HTN, Thyroid Surgical History: Denies all surgeries 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 Family History Family History: Reviewed,noncontributory to illness Social History Smoker: Non-Smoker Alcohol: Denies ETOH Use Drugs: Denies Drug Use Lives In: Home Constitutional: reports: others (ANXIOUS ); denies: chills, diaphoresis, fatigue, fever, malaise, sweats, weakness EENTM: denies: blurred vision, double vision, ear bleeding, ear discharge, ear drainage, ear pain, ear ringing, eye pain, eye redness, hearing loss, mouth pain, mouth swelling, nasal discharge, nose bleeding, nose congestion, nose pain, photophobia, tearing, throat pain, throat swelling, voice changes, others Respiratory: denies: cough, hemoptysis, orthopnea, SOB at rest, shortness of breath, SOB with excertion, stridor, wheezing, others Cardiovascular: reports: others (HIGH BLOOD PRESSURE); denies: chest pain, dizzy spells, diaphoresis, Dyspnea on exertion, edema, irregular heart beat, left arm pain, lightheadedness, palpitations, PND, syncope Gastrointestinal: denies: abdomen distended, abdominal pain, blood streaked bow els, constipated, diarrhea, dysphagia, difficulty swallowing, hematemesis, melena, nausea, poor appetite, poor fluid intake, rectal bleeding, rectal pain, vomiting, others Genitourinary: denies: abnormal vagina bleeding, burning, dyspareunia, dysuria, flank pain, frequency, hematuria, incontinence, pain, , vagina discharge, urgency, others Neurological: reports: headache; denies: dizziness, fainting, left sided numbness, left sided weakness, numbness, paresthesia, pre-existing deficit, right sided numbness, right sided weakness, seizure, speech problems, tingling, tremors, weakness, others Musculoskeletal: denies: back pain, gout, joint pain, joint swelling, muscle pain, muscle stiffness, neck pain, others Integumetry: denies: bruises, change in color, change in hair/nails, dryness, laceration, lesions, lumps, rash, wounds, others Allergic/Immunocompromised: denies: Difficulty Healing, Frequent Infections, Hives, Itching, others Hematologic/Lymphatic: denies: anemia, blood clots, easy bleeding, easy bruising, swollen glands, others Endocrine: denies: excessive hunger, excessive sweating, excessive thirst, excessive urination, flushing, intolerance to cold, intolerance to heat, unexplained weight gain, unexplained weight loss, others Psychiatric: reports: anxiety; denies: bipolar disorder, depression, hopeless, panic disorder, schizophrenia, sleepless, suicidal, others All Other Systems: Reviewed and Negative Physical Exam General Appearance: Mild Distress, Normal, Other (ANXIOUS) HEENT: Normal ENT Inspection, Pharynx Normal, TMs Normal Neck: Full Range of Motion, Non-Tender, Normal, Normal Inspection Respiratory: Chest Non-Tender, Lungs Clear, No Accessory Muscle Use, No Respiratory Distress, Normal Breath Sounds Cardiovascular: No Edema, No JVD, No Murmur, No Gallop, Normal Peripheral Pulses, Regular Rate/Rhythm Breast Exam: Deferred Gastrointestinal: No Organomegaly, Non Tender, No Pulsatile Mass, Normal Bowel Sounds, Soft Genitalia: Deferred Pelvic: Deferred Rectal: Deferred Extremities: No calf tenderness, Normal capillary refill, Normal inspection, Normal range of motion, Non-tender, No pedal edema Musculoskeletal : Apperance: Normal 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 Was a procedure done?: No Differential Dx Considerations may include: HYPERTENSION, WELL CHECK, TENSION HEADACHE, ANXIETY REACTION, HYPERVENTILATION SYNDROME, BRAIN MASS, BRAIN BLEED, DEHYDRATION, ELECTROLYTE IMBALANCE, UTI X-Ray, Labs, Meds, VS Vital Signs Date Time Temp Pulse Resp B/P (MAP) Pulse Ox O2 Delivery O2 Flow Rate FiO2 01/07/25 14:08 169/93 01/07/25 14:03 69 16 169/93 (118) 98 01/07/25 12:40 76 19 95 Room Air 01/07/25 12:39 76 19 122/86 (98) 95 01/07/25 12:18 98.6 96 16 191/105 98 98.6 Lab Test 01/07/25 13:35 01/07/25 12:41 Range/Units Urine Color Light-yellow Yellow Urine Clarity Hazy H Clear Urine pH 5.5 5.0-9.0 Urine Specific [place] 1.009 1.001-1.035 Urine Protein Trace H Negative Urine Ketones Negative Negative Urine Blood Negative Negative /uL Urine Nitrite Negative Negative Urine Bilirubin Negative Negative Urine Urobilinogen Normal Negative mg/dL Urine Leukocyte Esterase 2+ Negative /uL Urine RBC 3 0 - 4 /hpf Urine Microscopic WBC 7 H 0-5 /HPF Urine Squamous Epithelial Cells Few <5 /hpf Urine Bacteria Few H None Seen /hpf Urine Yeast (Budding) Occasional None Seen /hpf Urine Glucose Normal Normal mg/dL White Blood Count 6.9 4.4-10.8 10^3/uL Red Blood Count 4.58 4.0-5.20 10^6/uL Hemoglobin 14.7 12.2-16.2 g/dL Hematocrit 42.5 36.0-46.0 % Mean Corpuscular Volume 92.7 80.0-100.0 fL Mean Corpuscular Hemoglobin 32.1 H 28.0-32.0 pg Mean Corpuscular Hemoglobin Concent 34.6 32.0-36.0 g/dL Red Cell Distribution Width 13.3 11.8-14.3 % Platelet Count 206 140-450 10^3/uL Mean Platelet Volume 7.7 6.9-10.8 fL Neutrophils (%) (Auto) 54.9 37.0-80.0 % Lymphocytes (%) (Auto) 35.3 10.0-50.0 % Monocytes (%) (Auto) 7.4 0.0-12.0 % Eosinophils (%) (Auto) 2.0 0.0-7.0 % Basophils (%) (Auto) 0.4 0.0-2.0 % Neutrophils # (Auto) 3.8 1.6-8.6 10 ^3/uL Lymphocytes # (Auto) 2.4 0.4-5.4 10 ^3/uL Monocytes # (Auto) 0.5 0-1.3 10 ^3/uL Eosinophils # (Auto) 0.1 0-0.8 10 ^3/uL Basophils # (Auto) 0 0-0.2 10 ^3/uL Nucleated Red Blood Cells 0.1 % Sodium Level 145 136-145 mmol/L Potassium Level 4.6 3.5-5.1 mmol/L Chloride Level 109 H 98-107 mmol/L Carbon Dioxide Level 25 20-31 mmol/L Anion Gap 11 5-15 Blood Urea Nitrogen 26 H 9-23 mg/dL Creatinine 1.41 H 0.550-1.02 mg/dL Glomerular Filtration Rate Calc 37 >90 mL/min BUN/Creatinine Ratio 18.4 10.0-20.0 Serum Glucose 99 74-106 mg/dL Calcium Level 9.9 8.7-10.4 mg/dL Troponin I High Sensitivity 10 </=34 ng/L Thyroid Stimulating Hormone (TSH) 0.74 0.55-4.78 uIU/mL Current Medications Medications (Trade) Dose Ordered Sig/Noy Route Start Time Stop Time Status Last Admin Acetaminophen (Tylenol Tablet) 1,000 mg ONCE ONCE PO 01/07/25 12:45 01/07/25 12:46 DC 01/07/25 12:48 Amlodipine Besylate (Norvasc Tablet) 5 mg ONCE ONCE PO 01/07/25 14:15 01/07/25 14:16 DC 01/07/25 14:08 Procedure: CT HEAD WITHOUT CONTRAST Study Date and Requested Time: 01/07/2025 12:51 PM History: HTN AND HEADACHE Comparison: CT HEAD W WO CONTRAST on DOS: 10/30/23 Dose: CTDI: 49.63 mGy DLP: 795.83 mGycm Technique: Multiplanar images obtained through the brain without intravenous contrast. Findings: [id number] Diffuse brain atrophy. Mild chronic small vessel ischemic changes. Nonspecific focus of calcification of the left frontal lobe. Hypodense focus within the Right basal ganglia which may represent chronic lacunar infarct versus prominent perivascular space. No hemorrhages, masses, mass effect, midline shift, herniation or cytotoxic edema following a large vascular territory. No intra-axial or extra-axial fluid collections. No evidence of hydrocephalus. The basal cisterns are patent. The pituitary gland, sella and parasellar regions are unremarkable. The cerebellar tonsils are in normal position. The cerebellum is unremarkable. The orbits and globes are unremarkable. Mild mucoperiosteal thickening of the ethmoid air cells. Otherwise, the paranasal sinuses and mastoids are clear. There are no worrisome calvarial lesions. Impression: No evidence of acute intracranial abnormality. ATED BY: MANSI DUMONT DO DICTATED DATE/TIME: 01/07/251326 SIGNED BY: MANSI DUMONT DO SIGNED DATE/TIME: 01/07/251326 CC: CHEST RADIOGRAPH Indication: HTN Technique: Single frontal view of the chest was obtained Comparison: None FINDINGS: Lines and Tubes: None Lungs: Mild pulmonary vascular congestion and interstitial edema. No focal consolidations. Pleura: No effusion. No pneumothorax. Cardiomediastinal contours: Unremarkable Bones: No acute osseous abnormality. Right lateral chest wall harrison. IMPRESSION: 1. Mild pulmonary vascular congestion and interstitial edema. ATED BY: AISLINN BUSTAMANTE MD DICTATED DATE/TIME: 01/07/251318 SIGNED BY: AISLINN BUSTAMANTE MD SIGNED DATE/TIME: 01/07/251318 CC: X-Ray, Labs, Meds, VS Comment EXTERNAL MEDICAL RECORDS REVIEWED: [NONE] INDEPENDENT HISTORIANS: [NONE] SOCIAL DETERMINANTS OF HEALTH: [NONE] LABS ORDERED: CBC, BMP, UA, TROPONIN, TSH REVIEWED AND INTERPRETED RESULTS: LEUKO 2+, BUN 26, CREA2 1.41 IMAGING ORDERED: CT BRAIN, XR CHEST TREATMENTS ORDERED: TYLENOL 1G PO AND AMLODIPINE 5MG PO PROCEDURES PERFORMED: NONE CRITICAL CARE TIME: NONE I HAVE DISCUSSED THE PATIENT WITH THE ATTENDING PHYSICIAN [PHYSICIAN'S NAME] AND HE AGREES WITH THE PATIENT'S PLAN OF CARE AND DISPOSITION. BASED ON HISTORY OF PRESENT ILLNESS, AND PHYSICAL EXAM, PATIENT WILL BE DISCHARGED HOME. SHARED DECISION MAKING: DISCUSSED WITH PATIENT THAT THEIR WORKUP WAS NORMAL. PATIENT INSTRUCTED TO FOLLOW UP WITH PRIMARY CARE PROVIDER IN 1-2 DAYS FOR RE- EVALUATION OF SYMPTOMS. PATIENT VERBALIZES UNDERSTANDING TO RETURN TO ED FOR NEW OR WORSENING SYMPTOMS OR IF FOLLOW UP WITH PCP CANNOT BE OBTAINED. PATIENT FEELS COMFORTABLE GOING HOME AT THIS TIME. ALL QUESTIONS ADDRESSED AT TIME OF DISCHARGE. Images Reviewed?: Images reviewed and evaluated by me Time of 1ST Reevaluation: 14:17 Reevaluation 1ST: Improved Patient Education/Counseling: Diagnosis, Treatment, Need For Follow Up Family Education/Counseling: Diagnosis, Treatment, Need For Follow Up Medical Screening: No EMC Exist At This Time SEPSIS Sepsis Screen Date sepsis recognized/suspect: Jan 07, 2025 Time Sepsis recognized/suspect: 1222 Recent Procedure: No On Antibiotic Therapy: No Respiratory Rate >20: No Heart Rate >90: Yes Temp<36 C (96.8 F) or >38.3 C: No SBP <90 or MAP <65 mmHG: No New Acute Mental Status Change: No Is the patient on CPAP, BIPAP,: No Physician Orders Electrocardigram (01/07/25 12:34) Chest Xray 1 View (01/07/25 12:34) Head Without Contrast (01/07/25 12:34) Vital Signs Date Time Temp Pulse Resp B/P (MAP) Pulse Ox O2 Delivery O2 Flow Rate FiO2 01/07/25 14:08 169/93 01/07/25 14:03 69 16 169/93 (118) 98 01/07/25 12:40 76 19 95 Room Air 01/07/25 12:39 76 19 122/86 (98) 95 01/07/25 12:18 98.6 96 16 191/105 98 98.6 Laboratory Tests Test 01/07/25 12:41 White Blood Count 6.9 10^3/uL (4.4-10.8) Medications Medications Dose Ordered Sig/Noy Route Start Time Stop Time Status Last Admin Dose Admin Acetaminophen 1,000 mg ONCE ONCE PO 01/07/25 12:45 01/07/25 12:46 DC 01/07/25 12:48 Amlodipine Besylate 5 mg ONCE ONCE PO 01/07/25 14:15 01/07/25 14:16 DC 01/07/25 14:08 Departure 1 Departure Time of Disposition: 14:20 Impression: Primary Impression: Tension headache Additional Impression: HTN (hypertension) Qualified Codes: I10 - Essential (primary) hypertension Disposition: 01 HOME / SELF CARE / HOMELESS Condition: Stable Additional Instructions: FOLLOW-UP WITH PCP IN 1 TO 2 DAYS. TAKE MEDICATIONS PRESCRIBED. RETURN TO ED FOR ANY NEW OR WORSENING SYMPTOMS. Discharged With: Self, Relative Critical Care Note Critical Care Time?: No Stability Stability form required: No I personally scribed for GOVIND HICKEY ([email or web address]) on 01/07/25 at 12:56. Electronically submitted by Steffen Cortez ([email or web address]). I personally scribed for GOVIND HICKEY ([email or web address]) on 01/07/25 at 13:56. Electronically submitted by Steffen Cortez ([email or web address]). GOVIND HICKEY Jan 07, 2025 12:56
[2025-01-07 12:57] LABS: Hematocrit 42.5 % (36.0-46.0); Hemoglobin 14.7 g/dL (12.2-16.2); Mean Corpuscular Hemoglobin 32.1 pg (28.0-32.0); Mean Corpuscular Volume 92.7 fL (80.0-100.0); Nucleated Red Blood Cells % 0.1 %
[2025-01-07 13:10] LABS: Potassium 4.6 mmol/L (3.5-5.1); Sodium 145 mmol/L (136-145)
[2025-01-07 13:11] LABS: Anion Gap 11 (5-15); Calcium 9.9 mg/dL (8.7-10.4); Carbon Dioxide 25 mmol/L (20-31)
[2025-01-07 13:14] LABS: Chloride 109 mmol/L (98-107)
[2025-01-07 13:16] LABS: BUN/Creatinine Ratio 18.4 (10.0-20.0); Glucose 99 mg/dL (74-106)
[2025-01-07 13:17] LABS: Blood Urea Nitrogen 26 mg/dL (9-23)
--- NOTE | 2025-01-07 13:21 | DVH ---
CHEST RADIOGRAPH Indication: HTN Technique: Single frontal view of the chest was obtained Comparison: None FINDINGS: Lines and Tubes: None Lungs: Mild pulmonary vascular congestion and interstitial edema. No focal consolidations. Pleura: No effusion. No pneumothorax. Cardiomediastinal contours: Unremarkable Bones: No acute osseous abnormality. Right lateral chest wall harrison. IMPRESSION: 1. Mild pulmonary vascular congestion and interstitial edema.
--- NOTE | 2025-01-07 13:29 | DVH ---
Procedure: CT HEAD WITHOUT CONTRAST Study Date and Requested Time: 01/07/2025 12:51 PM History: HTN AND HEADACHE Comparison: CT HEAD W WO CONTRAST on DOS: 10/30/23 Dose: CTDI: 49.63 mGy DLP: 795.83 mGycm Technique: Multiplanar images obtained through the brain without intravenous contrast. Findings: [id number] Diffuse brain atrophy. Mild chronic small vessel ischemic changes. Nonspecific focus of calcification of the left frontal lobe. Hypodense focus within the Right basal ganglia which may represent chronic lacunar infarct versus prominent perivascular space. No hemorrhages, masses, mass effect, midline shift, herniation or cytotoxic edema following a large vascular territory. No intra-axial or extra-axial fluid collections. No evidence of hydrocephalus. The basal cisterns are patent. The pituitary gland, sella and parasellar regions are unremarkable. The cerebellar tonsils are in normal position. The cerebellum is unremarkable. The orbits and globes are unremarkable. Mild mucoperiosteal thickening of the ethmoid air cells. Otherwise, the paranasal sinuses and mastoids are clear. There are no worrisome calvarial lesions. Impression: No evidence of acute intracranial abnormality.
[2025-01-07 13:52] LABS: Urine Budding Yeast OCCASIONAL /hpf (None Seen); Urine Protein, UAD TRACE (Negative)
[2025-01-07 14:03] VITALS: BP 169/93; PULSE 69; RESP 16; O2SAT 98
== END 2025-01-07 14:12 | disposition home or self-care (01) ==
LOC: ER 12:17
DX: G44.209 Tension-type headache, unspecified, not intractable (principal); I10 Essential (primary) hypertension; Z88.5 Allergy status to narcotic agent; Z88.2 Allergy status to sulfonamides; Z88.0 Allergy status to penicillin; Z79.899 Other long term (current) drug therapy
CPT/HCPCS: 36415; 70450; 71045; 80048; 81001; 84443; 84484; 85025